=== PATIENT | male | born 1955 | race Caucasian/White ===

== ENCOUNTER 2019-08-20 08:14 | Emergency (ER) | payer BC, SELFPAY ==
[2019-08-20 08:15] VITALS: BP 159/91; PULSE 107; RESP 17; TEMP 36.4; O2SAT 100; BMI 28.7
--- NOTE | 2019-08-20 09:23 | ED.DCSUM_ITS ---
- ER Visit Summary Date of Service: 08/20/19 Chief Complaint: Right leg injury History of Present Illness: The patient is a 63 M who states that last night he was moving wood from a wood pile thinks he may have punctured his right leg. Has not stopped bleeding and is been problematic for him. He has placed a pressure bandage on it. Unknown last tetanus. Physical Examination: Afebrile vital signs stable On the mid right anterior lateral leg is 0.5 cm superficial laceration that has venous bleeding. Above and below this abrasion is a spider vein. Emergency Department Course and Treatment: Wound area washed with Shur-Clens lidocaine with epinephrine was instilled into the area. A single 4-0 pursestring suture was placed. This was then dressed with Surgicel and a dressing. His tetanus was updated. Suture will need to be removed in about 1 week. Impression: 1. Skin laceration 0.5 cm with a pair 2. Tetanus update This note was generated with [employer] dictation software. It may contain incorrect words, spelling, and punctuation that were not noted in review of the chart prior to signing ED Disposition - Plan for ED Patient: Disposition: Home or Assisted Living Instructions: PUNCTURE WOUND, General Referrals: Chino Child MD [Primary Care Provider] - 10 Day for suture removal
[2019-08-20] MEDS: Diphth,Pertuss(Acell),Tet Vac 0.5 ML Vial IM (09:31)
[2019-08-20 09:38] VITALS: BP 150/87; PULSE 100; RESP 16; O2SAT 100
== END 2019-08-20 09:39 | disposition home or self-care (01) ==
PROVIDERS: Emergency Provider Emergency Medicine; Family Provider Family Medicine; PCP Family Medicine
DX: S81.811A Laceration without foreign body, right lower leg, initial encounter (principal); X58.XXXA Exposure to other specified factors, initial encounter; Y93.9 Activity, unspecified; Y92.9 Unspecified place or not applicable; Z23 Encounter for immunization
CPT/HCPCS: 12001; 90471; 90715; 99282

== ENCOUNTER 2021-08-26 10:38 | Emergency (ER) | payer BC, SELFPAY ==
[2021-08-26 10:38] VITALS: BP 177/82; PULSE 109; RESP 24; TEMP 38.2; O2SAT 96; BMI 26.6
[2021-08-26 10:44] VITALS: BP 177/82; PULSE 109; RESP 24; TEMP 38.2; O2SAT 95; O2SAT 96
[2021-08-26 11:41] VITALS: BP 158/81; PULSE 100; RESP 25; TEMP 38.2; O2SAT 95
--- NOTE | 2021-08-26 11:52 | ED.VIS.DYS ---
HPI History of Present Illness Chief Complaint: Shortness of Breath Informant: patient Onset/Context/Timing Onset: Weeks (1) Context: gradual Timing: Continuous Quality: Positive for Dyspnea on exertion Worsened by: Exertion Relieved by: Albuterol Associated Symptoms cough, fever and yellow sputum; Negative for rhinorrhea, ear pain, sore throat or chills Chest Pain: Positive for None Narrative Narrative: Patient presents with shortness of breath that has been getting worse over the last week. Patient states it is gradually getting worse. Patient states his breathing is worse with any exertion. Patient states the albuterol seems to help with his breathing. Patient is to a cough with some yellow sputum. Patient admits to a fever of 102 at home. Patient denies any sore throat, rhinorrhea, or ear pain. Patient denies any chest pain. Patient states he tested positive for COVID-19 last week. PFSH PFSH Medical History no medical history no medical history Home Medications albuterol 90 mcg INHALATION Q4H PRN 08/26/21 [History Last Taken Unknown] benzonatate 100 mg PO TID PRN 08/26/21 [History Last Taken Unknown] Allergy/AdvReac Type Severity Reaction Status Date / Time No Known Allergies Allergy Verified 08/26/21 10:41 Surgical History no surgical history no surgical history Social History Smoking Status: Never smoker ROS ROS ED Constitutional Constitutional ED: Reports fever(s); Denies chills Eyes Eyes: Denies blurry vision or change in vision ENT ENT ED: Denies rhinorrhea or sore throat Cardiovascular Cardiovascular: Denies chest pain or palpitations Respiratory/Chest Respiratory/Chest: Reports cough and dyspnea Gastrointestinal Gastrointestinal: Denies nausea or vomiting Genitourinary Genitourinary ED: Reports dysuria; Denies hematuria Musculoskeletal Musculoskeletal: Denies back pain or neck pain Integumentary Denies abscess or rash Neurologic Neurologic: Denies headache(s) or weakness Allergic/Immunologic Allergic/Immunologic ED: Denies mouth swelling or urticaria EXAM Physical Exam Const Vital Signs: 08/26/21 10:38 08/26/21 10:44 08/26/21 11:41 Temperature 100.8 F H 100.8 F H 100.8 F H Temperature Source Oral Oral Oral Pulse Rate 109 H 109 H 100 Respiratory Rate 24 H 24 H 25 H Respiratory Effort Short of Breath Respiratory Pattern Tachypnea Blood Pressure 177/82 H 177/82 H 158/81 H Blood Pressure Mean 113 113 106 Pulse Ox 96 96 95 Oxygen Delivery Method Room Air Room Air Room Air 08/26/21 12:38 08/26/21 13:00 08/26/21 14:19 Temperature 99.1 F 25 F L Temperature Source Oral Pulse Rate 99 98 Respiratory Rate 29 H 24 H 95 H Respiratory Effort Respiratory Pattern Blood Pressure 172/85 H 140/81 H 148/85 H Blood Pressure Mean 114 100 Pulse Ox 94 97 98 Oxygen Delivery Method Room Air Room Air Positive well nourished and well developed General Appearance ED: well developed HEENT Reports moist mucous membranes Neck supple and no JVD Resp normal respiratory effort Auscultation: rales bilateral Cardio regular rate, regular rhythm and no murmurs GI normal to inspection, nondistended, normoactive bowel sounds and non-tender Palpation: soft Extremity normal to inspection General Extremety ED: Negative for edema or tenderness General Extremity: Negative for edema Neuro oriented x3, CN's II-XII intact bilaterally and no sensory deficits noted Sensorium / Orientation: alert Motor Exam: strength 5/5 throughout Psych mental status grossly normal Skin no rashes or lesions noted MDM MDM MDM Narrative Medical decision making narrative: Patient was given 6 puffs of an albuterol inhaler. Patient was given Tylenol. CBC was within normal limits. Comprehensive metabolic profile was essentially within normal limits. Lactate was normal. Portable chest x-ray was obtained. There is 1 view. On my interpretation, there are bilateral lower lobe infiltrates consistent with COVID-19 pneumonia. Bony thorax is normal. There is no cardiomegaly. Radiologist also interpreted the x-ray and agrees. Patient was advised of his findings. Patient was given a referral for outpatient monoclonal antibody therapy. Patient was instructed to continue using his inhaler as needed. Patient was instructed to follow-up with his primary care physician in 3 to 5 days. Patient was instructed return if worse in any way. Patient and family understood and were agreeable with the plan. All questions were answered. Lab Data Attestation: I reviewed the patient's lab results. Labs: Laboratory Results - last 24 hr 08/26/21 08/26/21 08/26/21 10:45 10:45 12:14 WBC 8.3 RBC 4.46 L Hgb 12.6 L Hct 38.1 L MCV 85.4 MCH 28.3 MCHC 33.1 RDW Std Deviation 46.7 H RDW Coeff of Arely 14.8 H Plt Count 326 MPV 9.2 Immature Gran % (Auto) 0.800 Neut % (Auto) 80.0 H Lymph % (Auto) 9.2 L Rusk % (Auto) 9.8 Eos % (Auto) 0.0 Baso % (Auto) 0.2 Absolute Neuts (auto) 6.6 Absolute Lymphs (auto) 0.76 L Nucleated RBC % 0 Sodium 134 L Potassium 3.9 Chloride 99 Carbon Dioxide 28.0 Anion Gap 7 BUN 15 Creatinine 1.03 Estim Creat Clear Calc 74.81 Est GFR (MDRD) Af Amer 93 Est GFR (MDRD) Non-Af 77 BUN/Creatinine Ratio 14.6 Glucose 142 H Lactic Acid 1.8 Calcium 8.5 Total Bilirubin 0.60 AST 71 H ALT 100 H Alkaline Phosphatase 53 Total Protein 7.0 Albumin 2.5 L Globulin 4.5 H Albumin/Globulin Ratio 0.6 L Radiography Chest X-Ray - ED: 1 View, Read by ED Physician, Read by Radiologist, Right Infiltrate and Left Infiltrate Diagnostic Testing: Radiology Impression Chest X-Ray 08/26/21 12:02 IMPRESSION: Multilobar pulmonary infiltrates with features commonly reported with COVID pneumonia. Electronically Signed: Andreas Ibqal MD ([place]) at 12:15 EDT , Service support , Discharge Plan Triage Chief Complaint: Shortness of Breath ED Provider: Chino Guevara Dx/Rx/DC Orders Clinical Impression: Pneumonia due to COVID-19 virus Instructions: Coronavirus Disease 2019 (COVID-19): Caring for Yourself or Others Prescriptions: No Action benzonatate 100 mg Capsule 100 mg PO TID PRN (Reason: Cough) RF: 0 albuterol 90 mcg/actuation Aerosol 90 mcg INHALATION Q4H PRN RF: 0 Other Ambulatory Orders: COVID Outpatient Monoclonal Antibody Referral (Routine) Timeframe: 1 Day Facility: [facility] - Location: [facility] Ordered By: Dr. Chino Guevara Primary Care Provider: Chino Child Referrals: Chino Child MD [Primary Care Provider] - 3-5 Days Disposition Disposition: Home, Self Care Discharge Date/Time: 08/26/21 14:43
[2021-08-26] MEDS: Acetaminophen 500 MG Tablet 1000 MG PO (11:57)
--- NOTE | 2021-08-26 12:02 | RAD_ITS ---
STUDY: X-RAY CHEST REASON FOR EXAM: Male, 65 years old. cough TECHNIQUE: AP COMPARISON: None. FINDINGS: EKG leads project over the chest. Lungs are underexpanded. Peripheral dominant multilobar groundglass and reticular opacities in the left more than right lung. There is no demonstrated pleural abnormality. Normal size heart. Normal mediastinum and juwan. Normal visualized pulmonary arteries. There is atherosclerotic calcification of the aortic arch with tortuosity. No acute bony process. There is no demonstrated abnormality of the visualized soft tissue structures of the upper abdomen. RAD/Chest 1 View (Portable) IMPRESSION: Multilobar pulmonary infiltrates with features commonly reported with COVID pneumonia. Electronically Signed: Andreas Iqbal MD ([place]oks) at 12:15 EDT , Service support ,
[2021-08-26 12:12] LABS: ALB/GLOB Ratio 0.6 RATIO (0.9-2.4); AST(SGOT) 71 U/L (15-37); Alanine Aminotransfer ALT/SGPT 100 U/L (16-61); Albumin, Serum 2.5 g/dL (3.2-5.0); Alkaline Phosphatase 53 U/L (45-117); Anion Gap 7 (5-15); BUN 15 mg/dL (7-18); BUN/Creat Ratio 14.6 RATIO (10-20); Calcium,Total 8.5 mg/dL (8.5-10.1); Chloride 99 mmol/L (98-107); Creatinine, Serum 1.03 mg/dL (0.70-1.30); EST Glomerular Filtration Rate 77 mL/min (>60); Est Glom Filt Rate - Afr Amer 93 mL/min (>60); Estimated Creatinine Clearance 74.81 ml/min; Globulin 4.5 g/dL (2.2-4.2); Glucose 142 mg/dL (74-106); Lactic Acid 1.8 mmol/L (0.4-1.9); Potassium 3.9 mmol/L (3.5-5.1); Sodium Level 134 mmol/L (136-145)
[2021-08-26 12:20] LABS: Absolute Lymphocyte Count 0.76 X10^3/uL (0.83-4.51); Absolute Neutrophil Count 6.6 X10^3/uL (2.0-7.7); Basophil# 0.02 X10^3/uL; Basophil% 0.2 % (0-1); Hematocrit 38.1 % (40-54); Hemoglobin 12.6 g/dL (13.0-16.5); Lymphocyte # 0.76 X10^3/ul (0.83-4.51); Lymphocyte % 9.2 % (19-41); Mean Corp Hgb Conc 33.1 g/dL (32-36); Mean Corpuscular Hgb 28.3 pg (27.0-32.0); Mean Corpuscular Volume 85.4 fL (80-94); Mean Platelet Vol. 9.2 fl (6.2-12.0); Monocyte# 0.81 X10^3/uL; Monocyte% 9.8 % (0-10); NRBC Flagged by Analyzer 0 % (0-5); Neutrophil # 6.62 X10^3/uL (2.7-7.7); Platelet Count 326 K/mm3 (150-450); RBC Distribution Width CV 14.8 % (11.6-14.6); RBC Distribution Width SD 46.7 fl (35.1-43.9); Red Blood Count 4.46 M/mm3 (4.6-6.2); White Blood Count 8.3 K/mm3 (4.4-11.0)
[2021-08-26 12:38] VITALS: BP 172/85; PULSE 99; RESP 29; O2SAT 94
[2021-08-26 13:00] VITALS: BP 140/81; PULSE 98; RESP 24; TEMP 37.3; O2SAT 97
[2021-08-26 14:19] VITALS: BP 148/85; RESP 95; TEMP -3.8; TEMP 25; O2SAT 98
== END 2021-08-26 14:43 | disposition home or self-care (01) ==
PROVIDERS: Emergency Provider Emergency Medicine; PCP Family Medicine
DX: U07.1 COVID-19 (principal); J12.82 Pneumonia due to coronavirus disease 2019
CPT/HCPCS: 71045; 80053; 83605; 85025; 87040; 87426; 99285; A4216

== ENCOUNTER 2022-07-06 04:19 | Emergency (ER) | payer BC, SELFPAY ==
[2022-07-06 04:19] VITALS: BP 119/115; PULSE 95; RESP 16; TEMP 36.6; O2SAT 97; BMI 27.7
--- NOTE | 2022-07-06 04:22 | EDS_ITS ---
HPI History of Present Illness Chief Complaint: Eye Problem Informant: patient Onset/Context/Timing Location: Right Eye Narrative Narrative: Patient started to get some irritation of his right eye yesterday morning. He did put in his contact. He he is not sure if it fell out. But he cannot find it in the eye. The eye is gotten more red irritated and is having weeping with matting. Its not really painful. He states the vision is cloudy but gets better as he blinks. He has a history of having infections like this although normally they have been in his left eye by chance. This is similar but in his right eye. He does wear extended wear soft contacts. He is not having fevers chills. No pain with eye motion. No headache. No nausea vomiting. PFSH PFSH Home Medications albuterol 90 mcg/actuation aerosol inhaler 90 mcg inhalation Q4H PRN 08/26/21 [History Last Taken Unknown] benzonatate 100 mg capsule 100 mg PO TID PRN Cough 08/26/21 [History Last Taken Unknown] tobramycin 0.3 % eye drops 2 drp RIGHT EYE Q2H #5 mL 07/06/22 [Rx Last Taken Unknown] Allergy/AdvReac Type Severity Reaction Status Date / Time No Known Allergies Allergy Verified 07/06/22 04:22 Social History Smoking Status: Never smoker ROS ROS ED Constitutional Constitutional ED: Denies chills or fever(s) Eyes Eyes: Reports blurry vision and other Details: I do not have visual acuity yet but this is ordered. I expect this to be reduced because of the infection, discharge, and lack of corrective vision. ENT ENT ED: Denies ear pain, rhinorrhea or sore throat Gastrointestinal Gastrointestinal: Denies nausea or vomiting Musculoskeletal Musculoskeletal: Denies neck pain Integumentary Reports other Details: No vesicles or facial rash, burning or discomfort. ; Denies rash Neurologic Neurologic: Denies headache(s) Hematologic/Lymphatic Hematologic/Lymphatic: Denies lymphadenopathy EXAM Physical Exam Const Vital Signs: 07/06/22 04:19 Temperature 97.9 F Temperature Source Temporal Pulse Rate 95 Respiratory Rate 16 Blood Pressure 119/115 H Blood Pressure Mean 116 Pulse Ox 97 Oxygen Delivery Method Room Air Positive well nourished and well developed General Appearance ED: well developed and NAD HEENT HEENT Narrative: There is no facial rash. Jose sign is negative. Eyes Eyes Narrative: Left eye looks normal. Right eye has obvious chemosis and inflammation. There is some purulent type discharge. Edges of his lids are somewhat inflamed. But there is no proptosis and no pain with range of motion. With direct funduscopic examination I do not see any contacts but there is a lot of discharge. Slit-lamp exam was done. Again I do not see contacts. I had him go through full range of motion and look under the lids and I do not see a contact including in the upper medial quadrant. Fluorescein was done as I was expecting to see an ulcer. However I do not see any area that is ulcerated in the cornea. The cornea actually looks quite clear other than slight discharge over it. This discharge is easy to move with his eyelid and see the area of the cornea. Maya sign is negative. No dendritic pattern is seen. Neck no lymphadenopathy Neck Narrative: No preauricular area nodes Resp normal respiratory effort Skin no wounds Lesions: no lesions Rashes: no rashes MDM MDM MDM Narrative Medical decision making narrative: Patient presents which what does look like a true bacterial conjunctivitis. My concern is that he is a contact lens wearer. These will oftentimes ulcerate although I do not see that at this time. I would like to use a bit of a fortified antibiotic such as tobramycin. We will initially start this at increased dose for 24 hours and then reduce this. 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 Brandt, first thing Thursday morning to get rechecked. If he develops pain, significant visual loss, swelling of the eyes, headache, nausea or vomiting he needs to return. Discharge Plan Triage Chief Complaint: Eye Problem ED Provider: Jett Lunsford Dx/Rx/DC Orders Clinical Impression: Bacterial conjunctivitis of right eye Instructions: ED Conjunctivitis, Bacterial Prescriptions: New tobramycin 0.3 % drops 2 drp RIGHT EYE Q2H Qty: 5 0RF Rx Instructions: 1-2 drops in right eye every 2 hours for 24 hours then reduce to every 4 hours frequency No Action benzonatate 100 mg Capsule 100 mg PO TID PRN (Reason: Cough) albuterol 90 mcg/actuation Aerosol 90 mcg INHALATION Q4H PRN Primary Care Provider: Chino Child Referrals: Philip Valdes MD [Med Staff - Active Staff] - 1 Day (Follow-up with Dr. Valdes or your water/wastewater project engineer, Dr. Brandt on Thursday) Chino Child MD [Primary Care Provider] - Disposition Disposition: Home, Self Care
[2022-07-06] MEDS: Tobramycin Sulf 0.3% 5ML OPTH.BTL 2 DRP RIGHT EYE (05:05)
[2022-07-06] MEDS: Fluorescein 1 MG STRIP 1 STRIP OPHTHALMIC (05:05)
== END 2022-07-06 05:09 | disposition home or self-care (01) ==
PROVIDERS: Emergency Provider Emergency Medicine; PCP Family Medicine; Visit Provider Emergency Medicine
DX: H10.9 Unspecified conjunctivitis (principal); Z97.3 Presence of spectacles and contact lenses
CPT/HCPCS: 99283

== ENCOUNTER → 2022-07-07 | Outpatient (CLI) | payer BC, SELFPAY | END | disposition home or self-care (01) | PROVIDERS: PCP Family Medicine; Visit Provider Ophthalmology | DX: H16.009 Unspecified corneal ulcer, unspecified eye (principal) | CPT/HCPCS: 87070; 87205 ==

== ENCOUNTER → 2023-03-04 | Outpatient (CLI) | payer OTHER, SELFPAY ==
[2023-03-04 16:32] LABS: ALB/GLOB Ratio 1.2 RATIO (0.9-2.4); AST(SGOT) 15 U/L (15-37); Alanine Aminotransfer ALT/SGPT 26 U/L (16-61); Albumin, Serum 3.7 g/dL (3.2-5.0); Alkaline Phosphatase 80 U/L (45-117); Anion Gap 6 (5-15); BUN 16 mg/dL (7-18); BUN/Creat Ratio 12.8 RATIO (10-20); Calcium,Total 8.9 mg/dL (8.5-10.1); Chloride 101 mmol/L (98-107); Cholesterol 251 mg/dL (200); Creatinine, Serum 1.25 mg/dL (0.70-1.30); EST Glomerular Filtration Rate 61 mL/min (>60); Est Glom Filt Rate - Afr Amer 74 mL/min (>60); Globulin 3.1 g/dL (2.2-4.2); Glucose 476 mg/dL (74-106); High Density Lipoprotein 45 mg/dL; PSA,Total - Annual Screen 1.24 ng/mL (0.00-4.00); Potassium 4.1 mmol/L (3.5-5.1); Protein, Total 6.8 g/dL (6.4-8.2); Sodium Level 132 mmol/L (136-145); Triglycerides 146 mg/dL; Very Low Density Lipoprotein 29 mg/dL (5-40)
[2023-03-05 14:40] LABS: Thyroid Stim Hormone (TSH) 2.28 uIU/mL (0.358-3.74)
[2023-03-05 15:17] LABS: Hemoglobin A1c 13.5 % (3.8-5.6)
[2023-03-07 14:02] LABS: C-Peptide 2.7 ng/mL (1.1-4.4)
== END | disposition home or self-care (01) ==
LOC: MTLAB 11:42
PROVIDERS: PCP Family Medicine; Referring Provider Family Medicine; Visit Provider Family Medicine
DX: E78.00 Pure hypercholesterolemia, unspecified (principal); Z12.5 Encounter for screening for malignant neoplasm of prostate
CPT/HCPCS: 36415; 80053; 80061; 83036; 84153; 84443; 84681; G0103

== ENCOUNTER → 2023-06-03 | Outpatient (CLI) | payer OTHER, SELFPAY ==
[2023-06-03 10:21] LABS: AST(SGOT) 20 U/L (15-37); Alanine Aminotransfer ALT/SGPT 19 U/L (16-61); Albumin, Serum 3.4 g/dL (3.2-5.0); Alkaline Phosphatase 54 U/L (45-117); Anion Gap 6 (5-15); BUN 19 mg/dL (7-18); BUN/Creat Ratio 14.8 RATIO (10-20); Chloride 108 mmol/L (98-107); Cholesterol 222 mg/dL (200); Creatinine, Serum 1.28 mg/dL (0.70-1.30); EST Glomerular Filtration Rate 60 mL/min (>60); Est Glom Filt Rate - Afr Amer 72 mL/min (>60); Globulin 3.3 g/dL (2.2-4.2); Glucose 105 mg/dL (74-106); High Density Lipoprotein 45 mg/dL; Protein, Total 6.7 g/dL (6.4-8.2); Sodium Level 141 mmol/L (136-145); Triglycerides 97 mg/dL; Very Low Density Lipoprotein 19 mg/dL (5-40)
[2023-06-03 10:27] LABS: Hemoglobin A1c 6.4 % (3.8-5.6)
[2023-06-03 10:42] LABS: Microalbumin,Random Urine 32.4 mg/L (NO RANGE EST.); Microalbumin:Creatinine Ratio 22.2 mg/g CRE (<30 mg/g CRE)
== END | disposition home or self-care (01) ==
LOC: MTLAB 07:57
PROVIDERS: PCP Family Medicine; Referring Provider Family Medicine; Visit Provider Family Medicine
DX: E11.9 Type 2 diabetes mellitus without complications (principal)
CPT/HCPCS: 36415; 80053; 80061; 82043; 82570; 83036

== ENCOUNTER → 2023-12-08 | Outpatient (CLI) | payer OTHER, SELFPAY ==
--- OUTSIDE RECORDS SUMMARY | 2023-12-08 07:20 | XMS RPT_ITS | CCD ---
Author Name Unknown Address [address] [place] [address] Organization [facility] Care Team Providers Care Rn Hemodialysis Charge Name Role Phone Galo Valdes Unavailable GALO VALDES Referring Unavailable MARTÍNEZ RIVERA Attending Unavailable Medications Completed/Discontinued Medications Medication Drug Class(es) Dates Sig (Normalized) Sig (Original) prednisoLONE acetate 10 mg/ml ophthalmic suspension (2 sources) Corticosteroid Start: 08-20-2022 prednisoLONE acetate (PRED FORTE, ECONOPRED PLUS) 1 % ophthalmic suspension Use 1 Drop in the right eye twice daily. 5 mL 0 08/20/2022 Active Problems Problem Classification Problem Date Documented Da te Episodic/Chronic Other eye disorders (1 source) Scar of cornea of right eye; Translations: [Unspecified corneal scar and opacity] Episodic Results Test Name Value Interpretation Reference Range Facil ity Encounters Encounter Date Encounter Type Care Provider Facility Start: 09-03-2022 End: 09-03-2022 Patient encounter procedure Martínez Rivera MD Work Phone: Ophthalmology Plan of Treatment Date Care Activity Detail Author Start: 07-24-2022 Influenza vaccination INFLUENZA (#1) [facility] Start: 11-23-2021 ADVANCE DIRECTIVE DISCUSSION ADVANCE DIRECTIVE DISCUSSION [facility] Start: 11-23-2021 DEPRESSION ASSESSMENT DEPRESSION ASS ESSMENT [facility] Start: 2021 PNEUMOCOCCAL: 65+ (1 - PCV) PNEUMOCOCCAL: 65+ (1 - PCV) [facility] Start: 2011 PROSTATE CANCER SCRE ENING DISCUSSION PROSTATE CANCER SCREENING DISCUSSION [facility] Start: 2006 SHINGRIX VACCINE (1 of 2) SHINGRIX V ACCINE (1 of 2) [facility] Start: 2001 COLOGUARD (FIT-DNA) COLOGUARD (FIT-D NA) [facility] Start: 2001 Colonoscopy COLONOSCOPY [facility] Start: 2001 COLORECTAL CANCER SCREENING COLORECTAL CANCER SCREENING [facility] Start: [address] COLONOGRAPHY [facility] Start: 2001 DIABETES SCREEN DIABETES SCREEN [facility] Start: 2001 FECAL OCCULT BLOOD FECAL OCCULT BLOO D [facility] Start: 2001 SIGMOIDOSCOPY SIGMOIDOSCOPY [facility] Start: 1991 LIPID SCREEN LIPID SCREEN [facility] Start: 1975 Urine microalbumin profile DTAP,TDAP ,TD (1 - Tdap) [facility] Start: 1974 HEPATITIS C SCREENING HEPATITIS C SC REENING [facility] Start: 1974 HIV SCREENING HIV SCREENING [facility] Start: 04-28-1957 COVID-19 VACCINE (#1) COVID-19 VACCI NE (#1) [facility] Payers Date Payer Category Payer Unknown [employer] PPO [id number] 2019-Present [phone] [id number] [place] [address] PPO [id number] 2019 Unknown [id number] Social History Date Type Detail Facility Start: 08-20-2022 Tobacco smoking stat [facility] Never smoked tobacco [facility] Start: 08-20-2022 Tobacco use and exposure Smoke less tobacco non-user [facility] Start: 1955 Sex Assigned At Not on file [facility] Start: 08-10-2022 End: 08-20-2022 Exposure to SARS-CoV-2 (event) Not sure [facility] History of Present illness Narrative 09-03-2022 Martínez Rivera MD - 09/03/2022 4:16 PM EDT Note Date & Type Note Facility 09-03-2022 History of Presen t illness Narrative Assessment and Plan 1. Corneal scar, right eye -history of culture-negative contact lens-related keratitis right eye that responded well to fortified antibiotics -well healed with Wessely ring on examination today - moraxella? -denies history of cold sores or exposure to plant matter (patient works on computers) Plan: -decrease prednisolone once a day right eye -follow-up 2 weeks / sooner as needed -Dr. Valdes for routine I have confirmed and edited as necessary the relevant ophthalmic history, ROS, and the neuro exam findings as obtained by others. I have seen and examined Joby Baker. I have discussed the case and the management of this patient's care with the Resident/Fellow, if applicable. I also have reviewed and agree with the assessment and plan as stated above and agree with all of its relevant components. Martínez Rivera MD documented in this encounter [facility] Note 08-21-2022 Telephone Encounter - Brigitte Morris RN - 08/21/2022 4:38 PM EDTTelephone Encounter - Brigitte Morris RN - 08/20/2022 12:32 PM EDT Note Date & Type Note Facility 08-21-2022 Miscellaneous Notes Formattin g of this note might be different from the original. Called Pharmacy to give dispense amount of 10 ml for the Prednisolone. Brigitte Morris RN August 21, 2022 4:39 PM Yes, it is per verbal order from Dr. Rivera. Brigitte Morris RN August 20, 2022 12:[address] Scott, is the 10mL okay to put through instead of the 5mL for Prednisolone? Please advise thank you Carla Durant August 20, 2022 10:53 AM [facility] pharmacy wanted to know if they could give the 10 ml of prednisolone because the 5 ml is on backorder. Please call pharmacy to update and/or fax new order if necessary. ph. [phone], fax [phone] documented in this encounter [facility] Progress note 08-20-2022 Note Date & Type Note Facility 08-20-2022 Note HNO ID: [id number] Author: Martínez Rivera MD Service: ? Author Type: Physician Type: Progress Notes Filed: 08/20/2022 9:54 AM Note Text: Assessment and Plan 1. Corneal scar, right eye -history of culture-negative contact lens-related keratitis right eye that responded well to fortified antibiotics -well healed with Wessely ring on examination today - moraxella? -denies history of cold sores or exposure to plant matter (patient works on computers) Plan: -prednisolone twice a day right eye -follow-up 2 weeks / sooner as needed -Dr. Valdes for routine I have confirmed and edited as necessary the relevant ophthalmic history, ROS, and the neuro exam findings as obtained by others. I have seen and examined Joby Baker. I have discussed the case and the management of this patient's care with the Resident/Fellow, if applicable. I also have reviewed and agree with the assessment and plan as stated above and agree with all of its relevant components. Martínez Rivera MD August 20, 2022 9:52 AM [facility] Evaluation note Note Date & Type Note Facility documented in this encounter [facility] Summary Purpose Family History No Family History Records Found Advance Directives No Advanced Directives Records Found Additional Source Comments Source Comments (unrecognize d section and content) In the event this informatio n is protected by the Federal Confidentiality of Alcohol and Drug Abuse Patient Records regulations: The Federal rules restrict any use of the information to criminally investigate or prosecute any alcohol or drug abuse patient.[facility] the event this information is protected by the Federal Confidentiality of Alcohol and Drug Abuse Patient Records regulations: The Federal rules restrict any use of the information to criminally investigate or prosecute any alcohol or drug abuse patient.[facility] Reason for Visit (unrecogniz ed section and content) Reason Comments Corneal Scar Right eye Care Teams (unrecognized sec tion and content) Rn Hemodialysis Charge Relationship Specialty Start Date End Date Galo Valdes [address] [place] [address] Referring Ophthalmology 08/14/22 (unrecognized sect ion and content) No Status Records Found INFORMATION SOURCE (unrecogn ized section and content) FOR RECORDS PERTAINING TO PATIENTS WHO ARE OR HAVE BEEN ENROLLED IN A CHEMICAL DEPENDENCY/SUBSTANCEABUSE PROGRAM, SOME INFORMATION MAY BE OMITTED. This clinical summary was aggregated from multiple sources. Caution should be exercised in using it in the provision of clinical care. This summary normalizes information from multiple sources, and as a consequence, information in this document may materially change the coding, format and clinical context of patient data. In addition, data may be omitted in some cases. CLINICAL DECISIONS SHOULD BE BASED ON THE PRIMARY CLINICAL RECORDS. [employer] provides no warranty or guarantee of the accuracy or completeness of information in this document.
[2023-12-08 10:17] LABS: Microalbumin,Random Urine 26.2 mg/L (NO RANGE EST.); Microalbumin:Creatinine Ratio 19.8 mg/g CRE (<30 mg/g CRE)
[2023-12-08 11:02] LABS: ALB/GLOB Ratio 1.2 RATIO (0.9-2.4); AST(SGOT) 12 U/L (15-37); Alanine Aminotransfer ALT/SGPT 25 U/L (16-61); Albumin, Serum 3.8 g/dL (3.2-5.0); Alkaline Phosphatase 45 U/L (45-117); Anion Gap 8 (5-15); BUN 15 mg/dL (7-18); BUN/Creat Ratio 11.5 RATIO (10-20); Calcium,Total 9.2 mg/dL (8.5-10.1); Chloride 104 mmol/L (98-107); Cholesterol 261 mg/dL (200); EST Glomerular Filtration Rate 59 mL/min (>60); Est Glom Filt Rate - Afr Amer 71 mL/min (>60); Globulin 3.1 g/dL (2.2-4.2); Glucose 131 mg/dL (74-106); High Density Lipoprotein 46 mg/dL; Potassium 3.7 mmol/L (3.5-5.1); Protein, Total 6.9 g/dL (6.4-8.2); Sodium Level 139 mmol/L (136-145); Triglycerides 126 mg/dL; Very Low Density Lipoprotein 25 mg/dL (5-40)
[2023-12-08 11:18] LABS: Hemoglobin A1c 6.2 % (3.8-5.6)
== END | disposition home or self-care (01) ==
LOC: MTLAB 07:07
PROVIDERS: PCP Family Medicine; Referring Provider Family Medicine; Visit Provider Family Medicine
DX: E11.9 Type 2 diabetes mellitus without complications (principal); Z12.5 Encounter for screening for malignant neoplasm of prostate; E78.00 Pure hypercholesterolemia, unspecified
CPT/HCPCS: 36415; 80053; 80061; 82043; 82570; 83036

== ENCOUNTER 2024-02-11 05:52 | Day surgery (SDC) | payer OTHER, SELFPAY ==
--- NOTE | 2024-02-04 06:53 | EKG12_ITS ---
Test Reason : PRE-OP Blood Pressure : / mmHG Vent. Rate : 080 BPM Atrial Rate : 080 BPM P-R Int : 166 ms QRS Dur : 078 ms QT Int : 380 ms P-R-T Axes : 068 024 039 degrees QTc Int : 438 ms Normal sinus rhythm Normal ECG Confirmed by GURINDER MEMBRENO, MARY CARMEN ([id number]), video effects editor LIZYZ GARCIA ([id number]) on 02/05/2024 2:11:47 PM Referred By: Asim Pillai Confirmed By:MARY CARMEN FAIRCHILD MD
[2024-02-11] VITALS (8 sets, daily range): BP systolic 114–145; BP diastolic 61–85; PULSE 64–88; RESP 16–17; TEMP 36.3–37.1; O2SAT 95–100; BMI 26.9
--- NOTE | 2024-02-11 06:40 | HP.PCM_ITS ---
History and Physical Date of Admission: 02/11/24 Intake Vital Signs 07/06/2204:19 01/13/2408:20 Height 5 ft 10 in 5 ft 10 in Weight: 188 lb BMI 26.9 BP 160/90 H Blood Pressure Location Rt brachial Position Sitting Respiration 18 Intake Visit Reasons: Inguinal Swelling Chief Complaint: [facility] [employer] Required: No Is patient in pain?: Yes (left groin) Allergies No Known Allergies Allergy (Verified 01/13/24 08:22) Medications aspirin 81 mg tablet,delayed release 81 mg PO DAILY 01/13/24 [History Confirmed 01/13/24] metformin 500 mg tablet 500 mg PO DAILY 01/13/24 [History Confirmed 01/13/24] multivitamin (Daily Multi-Vitamin tablet) 1 tab PO DAILY 01/13/24 [History Confirmed 01/13/24] pitavastatin calcium 2 mg tablet 2 mg PO QPM 01/13/24 [History Confirmed 01/13/24] ramipril 2.5 mg capsule 2.5 mg PO DAILY 01/13/24 [History Confirmed 01/13/24] [facility] Medical History (Updated 01/13/24 @ 11:[address] Asim Pillai MD) Constipation Diabetes High cholesterol HTN (hypertension) Left groin pain Surgical History (Updated 01/13/24 @ 08:18 by Shea El) S/P vasectomy Family History (Updated 01/13/24 @ 08:19 by Shea El) Mother Diabetes Heart diseaseSister Diabetes Heart diseaseBrother Diabetes Heart disease CAD (coronary artery disease) Social History (Updated 01/13/24 @ 08:20 by Shea El) Smoking Status: Never smoker alcohol intake: current details: social HPI HPI HPI: Patient is here complaining of left groin bulging. He says it is worse when he has to go to the bathroom or having a lot of gas. He says has been going on for about a year. He denies nausea or vomiting. He denies any pain on the opposite side. ROS General General: No weight change, appetite, fatigue, colon cancer, breast cancer or weakness HEENT HEENT: No difficulty swallowing, eye injury, eye surgery, swollen glands or hoarseness Endo Endocrine: Yes diabetes mellitus; No thyroid disease, thyroid cancer, Hair loss, heat intolerance or cold intolerance Skin Skin: No rash or changing moles Breast Breast: No left breast lump, right breast lump, nipple discharge, breast pain, abnormal mammogram, abnormal US or breast enlargement Musc Musculoskeletal: No back problems, arthritis, rheumatoid arthritis, gout or joint pain Cardio Cardiovascular: Yes high blood pressure; No murmur, pacemaker, heart disease, atrial fibrillation, heart attack, heart stent, palpitations, shortness of breat with exertion or chest pain Psych Psychiatric: No depression, anxiety or hearing voices Resp Respiratory: No shortness of breath, No sleep apnea, No cough, No COPD, No ast hma, No emphysema and No wheezing Gastro Gastrointestinal: No abdominal pain, No nausea or vomiting, No diarrhea, Yes constipation, No blood in stool, No acid reflux, No hemorrhoids, No ulcers, No gallbladder problem and No black,tarry stools Clifford Hematologic: Yes blood thinners, No blood disorders, No bleeding, No anemia and No blood clots Neuro Neurologic: No system reviewed and no additional complaints, except as documented, No as per HPI, No abnormal gait, No abnormal hearing, No abnormal movements, No abnormal speech, No behavioral changes, No burning sensations, No confusion, No convulsions, No disequilibrium, No dizziness, No localized weakness, No frequent falls, No headache(s), No lack of coordination, No loss of vision, No memory loss, No numbness, No other visual disturbances, No radicular pain, No restless legs, No sensory deficit, No syncope, No tingling, No tremor(s), No weakness and No other Exam Const General: cooperative Orientation: alert and oriented x3 HENMS Head: normal to inspection Neck Neck: normal visual inspection and full ROM Chest Chest palpation & inspection: normal inspection of the chest Resp Effort & Inspection: normal respiratory effort Auscultation: clear to auscultation bilaterally Cardio Rate: regular rate Rhythm: regular rhythm GI Inspection: non-distended Palpation: soft, hernia indirect inguinal on the left and nontender Skin General: no rashes or lesions noted Neuro General: patient alert and patient oriented x3 Extrem General: full ROM Psych Appearance: grossly normal Mental Status: mental status grossly normal Assessment and Plan Assessment and Plan (1) Left inguinal hernia: Status: Acute Plan: The patient has a large but reducible left inguinal hernia that seems to contain colon. I discussed robotic assisted laparoscopic left inguinal hernia repair with mesh with him in great detail. I discussed the risks including but not limited to bleeding, infection, injury to other organs such as the bowel or bladder or blood supply the testicle. Patient understands the risks and is willing to proceed. I discussed repairing the opposite side if he has any herniation on that side and he would like to proceed if there is a hernia on the opposite side. Asim Pillai MD Pager: [facility] [address] [place] [address] [address] [place] [address] Office: I have examined the patient and the H&P has been reviewed. There are no clinical changes since date of exam.
[2024-02-11] MEDS: Lactated Ringers 1,000 ML 15 ML IV ×2 (06:42→09:25)
[2024-02-11] MEDS: Cefazolin 2 GM in 0.9% Normal Saline (100mL Bag) 100 ML IV (07:24)
[2024-02-11 08:03] LABS: Bedside Glucose 146 mg/dL (74-106)
[2024-02-11] MEDS: Bupivacaine Mpf 0.5% 30 ML VIAL (08:16)
--- NOTE | 2024-02-11 08:38 | PCM.OPRPT ---
Report of Operation Date of Procedure: 02/11/24 Pre-Operative Diagnosis: Left inguinal hernia Post-Operative Diagnosis: Same Surgery/Procedure Performed:: Robotic assisted laparoscopic left inguinal hernia repair with mesh Description of Surgical Findings:: Inflammation from the sigmoid to the peritoneum Type of Anesthesia: General/Regional Estimated Blood Loss (mL): 5 Description of Procedure: Patient was brought back to the operating room and general anesthesia was induced. The abdomen was prepped and draped in usual sterile fashion. Midline incision was made superior to the umbilicus and deepened to the fascia. The fascia was grasped and elevated and a Veress needle was placed into the abdomen and a drop test was performed. Next the abdomen was insufflated to 15 mmHg. The Veress needle was removed and a port was placed into the abdomen. Next the camera was placed into the abdomen and it was inspected and there were no injuries from entry. Patient was placed in steep Trendelenburg position and his inguinal regions were inspected. The patient had inguinal hernia on the left but nothing on the right. There was also some inflammation from the colon to the peritoneum. Next under direct visualization a right lateral 8 mm port was placed as well as a left lateral 8 mm port and the robot was docked. Using sharp dissection the adhesions from the colon were taken down. There is an area that might have been a diverticulum that was inflamed and stuck to the peritoneum. This area was sutured over using 3-0 silk suture to imbricate the area that was dissected free. There was no sign of colon injury. Next using electrocautery scissors the left lower quadrant peritoneum was incised. Dissection was carried inferiorly until the hernia sac was encountered. The hernia sac was slowly reduced into the abdomen. It was very long. Once it was fully reduced dissection was carried posteriorly. Next a ProGrip mesh was unfolded in the left groin and placed over the hernia defect. It covered the direct space as well. There was good coverage on all sides. Next the peritoneum was reapproximated using a running 3 OV lock suture. The mesh was completely covered by peritoneum at the end of the case. The robot was undocked and the ports were allowed to desufflate the abdomen. Next the ports were removed and the local anesthetic was injected into the incisions. The incisions were closed with interrupted 4-0 Monocryl sutures. Steri-Strips and bandages were applied. The scrotum was checked at the end the case and obtained both testicles. Patient was awoken and taken to PACU in stable condition and tolerated the procedure well. Grafts/Implants Used: ProGrip mesh in the left groin Admit VTE Documentation VTE Mechan Device Prophylaxis: SCD's
--- NOTE | 2024-02-11 08:57 | DCINST_ITS ---
Discharge Instructions Procedure Hernia Diet Discharge Diet: Light diet - advance as tolerated Activity Discharge Activity: May Not Drive (for 2-3 days or while taking narcotic pain meds.) and May Shower (with the bandage in place 1-2 days after surgery.) Lifting Restrictions: 20 pounds for 4 weeks. Additional Activity Instructions:: Climbing stairs is fine, walking is encouraged. Sitting in bed may be uncomfortable. Sitting up using your lateral muscles (sitting up sideways) is usually more comfortable. Do not drive, work heavy equipment of sign legal documents for 24 hours. If your hernia repair was an inguinal repair, you may have scrotal swelling, an ice pack and/or athletic support can provide more comfort. Pain medications may cause nausea, you should typically eat light foods as you take your pain medications. Pain medications may also cause constipation. If you have difficulty with this, discuss with your doctor. Resume aspirin tomorrow Alternate ibuprofen and Tylenol for pain, oxycodone for breakthrough pain. Dressing / Incision Call your doctor if your incision/area has: Continuous Slow Oozing, Sudden Increased Bleeding, Increased Pain/ Swelling, Increased Redness and Foul Smelling Discharge Call your doctor if you observe: Fever of 101 or Higher Suture Line Care: Avoid Pulling/Pushing and Avoid Pinching/Bending Remove Dressing in: 2 days (Remove clear bandages in 2 days, remove Steri-Strips in 7 to 10 days.) Follow Up Care Please Follow Up With: Asim Pillai MD When: Please call to schedule 2 week follow up appointment. [phone] Test Results: Test results from this visit will be discussed in further detail at your follow- up appointment, if applicable. Discharge Plan Admission Attending Provider: Asim Pillai Primary Care Provider: [place] Child Discharge Orders/Prescriptions Prescriptions: New oxycodone 5 mg Tablet 5 - 10 mg PO Q4H PRN PRN (Reason: Pain Score 4-10/10) 5 Days Qty: 10 0RF No Action metformin 500 mg tablet 500 mg PO DAILY ramipril 2.5 mg capsule 2.5 mg PO DAILY multivitamin [Daily Multi-Vitamin] Tablet 1 tab PO DAILY aspirin 81 mg tablet,delayed release (DR/EC) 81 mg PO DAILY pitavastatin calcium 2 mg tablet 2 mg PO QPM Referrals / Follow Up: [place] Child MD [Primary Care Provider] - Disposition Disposition (needs filled in before D/C Order can be placed): Home, Self Care
== END 2024-02-11 11:11 | disposition home or self-care (01) ==
LOC: SDC 05:53 → AC 05:53
PROVIDERS: PCP Family Medicine; Referring Provider Surgery; Visit Provider Surgery
PROC: 0YQ64ZZ Repair Left Inguinal Region, Percutaneous Endoscopic Approach (ICD-10-PCS; CPT 49650; principal; 2024-02-11 07:10)
DX: K40.90 Unilateral inguinal hernia, without obstruction or gangrene, not specified as recurrent (principal); E11.9 Type 2 diabetes mellitus without complications; E78.00 Pure hypercholesterolemia, unspecified; Z79.84 Long term (current) use of oral hypoglycemic drugs; I10 Essential (primary) hypertension; Z98.52 Vasectomy status
CPT/HCPCS: 49650; S2900; 00840; 82962; 93005; J7120; J2405

== ENCOUNTER → 2025-06-08 | Outpatient (CLI) | payer OTHER, SELFPAY ==
[2025-06-08 11:22] LABS: AST(SGOT) 13 U/L (<=37); Alanine Aminotransfer ALT/SGPT 16 U/L (<=46); Albumin, Serum 4.1 g/dL (3.4-4.8); Alkaline Phosphatase 54 U/L (40-129); Anion Gap 12 (5-15); BUN 17 mg/dL (4-19); BUN/Creat Ratio 13.5 RATIO (10-20); Calcium,Total 9.0 mg/dL (7.6-11.0); Carbon Dioxide 24.4 mmol/L (21.0-32.0); Chloride 101 mmol/L (98-108); Cholesterol 199 mg/dL (<=200); Globulin 2.4 g/dL (2.2-4.2); Glucose 306 mg/dL (70-99); Low Density Lipoprotein Calc. 137 mg/dL; Potassium 4.0 mmol/L (3.3-5.1); Triglycerides 87 mg/dL; Very Low Density Lipoprotein 17 mg/dL (5-40); cholesterol:hdl ratio screen 4.42
[2025-06-08 13:11] LABS: Creatinine, Urine (random) 159.00 mg/dL (39.00-259.00); Microalbumin,Random Urine 56.4 mg/L (<20 mg/L)
--- OUTSIDE RECORDS SUMMARY | 2025-06-08 18:06 | XMS RPT_ITS | CCD ---
Author Organization [facility] ion [facility] Care Team Providers Care Geology Technician Name Role Phone Philip Valdes Unavailable PHILIP VALDES Referring Unavailable MARTÍNEZ RIVERA Attending Unavailable Dr. Chino Child Primary Care Provider Dr. Chino Child Referring Provider Dr. Asim Pillai Attending Provider Dr. Asim Pillai Referring Provider Dr. Asim Pillai Other Provider ChildChino Referring Unavailable Child, Chino Primary Care Unavailable Chino Child Attending Unavailable Child, Chino Referring Unavailable Child, Chino Primary Care Unavailable Chino Child Attending Unavailable Child, Chino Referring Unavailable Child, Chino Primary Care Unavailable Asim Pillai Attending Unavailable Rg Cuello Referring Unavailable Larry Brower Attending Unavailable Mateusz, Chino Primary Care Unavailable Asim Pillai Referring Unavailable Mateusz, Chino Primary Care Unavailable Asim Pillai Consulting Unavailable Asim Pillai Attending Unavailable Mateusz, Chino Referring Unavailable Asim Pillai Attending Unavailable Child, Chino Primary Care Unavailable Asim Pillai Referring Unavailable Child, Chino Primary Care Unavailable Asim Pillai Attending Unavailable Child, Chino Referring Unavailable Child, Chino Primary Care Unavailable ChildChino Attending Unavailable Medications Current Medications Medication Drug Class(es) Dates Sig (Normalized) Sig (Original) aspirin 81 mg delayed release oral tablet (1 source) Platelet Aggregation Inhibitor, Nonsteroidal Anti-inflammatory Drug Start: 01-13-2024 take 81 mg by mouth once daily Aspirin Active 81 MG PO DAILY January 13, 2024 1:00am metFORMIN hydrochloride 500 mg oral tablet (1 source) Biguanide Start: 01-13-2024 take 500 mg by mouth once daily Metformin Active 500 MG PO DAILY January 13, 2024 1:00am Multivitamin (Daily Multi-Vitamin) tablet (1 source) Start: 01-13-2024 take 1 tablet by mouth once daily Multivitamin (Daily Multi-Vitamin) tablet Active 1 TABLET PO DAILY January 13, 2024 1:00am oxyCODONE hydrochloride 5 mg oral tablet (1 source) Opioid Agonist Start: 02-11-2024 take 5-10 mg by mouth every four hours as needed Oxycodone Active 5 - 10 MG PO EVERY 4 HOURS NEEDED 08 27February 11, 2024 Start: 02-11-2024 take 5-10 mg by mout h every four hours as needed Oxycodone Active 5 - 10 MG PO EVERY 4 HOURS NEEDED 08 27February 11, 2024 pitavastatin calcium 2 mg oral tablet (1 source) HMG-CoA Reductase Inhibitor Start: 01-13-2024 take 2 mg by mouth once daily in the evening Pitavastatin Calcium Active 2 MG PO EVERY EVENING January 13, 2024 1:00am ramipril 2.5 mg oral capsule (1 source) Angiotensin Converting Enzyme Inhibitor Start: 01-13-2024 take 2.5 mg by mouth once daily Ramipril Active 2.5 MG PO DAILY January 13, 2024 1:00am Completed/Discontinued Medications Medication Drug Class(es) Dates Sig (Normalized) Sig (Original) Albuterol (5 sources) beta2-Adrenergic Agonist Start: 08-26-2021 End: 01-13-2024 take 90 ug by inhalation every four hours as needed Albuterol Discontinued 90 MCG INHALATION EVERY 4 HOURS NEEDED August 26, 2021 12:00am January 13, 2024 9:23am Start: 08-26-2021 take 90 ug by inhala tion every four hours as needed Albuterol Active 90 MCG INHALATION EVERY 4 HOURS NEEDED August 25, 2021 11:00pm Start: 08-26-2021 take 90 ug by inhala tion every four hours as needed Albuterol Active 90 MCG INHALATION EVERY 4 HOURS NEEDED August 26, 2021 12:00am benzonatate 100 mg oral capsule (5 sources) Non-narcotic Antitussive Start: 08-26-2021 End: 01-13-2024 take 100 mg by mouth three times daily Benzonatate Discontinued 100 MG PO THREE TIMES A DAY August 26, 2021 12:00am January 13, 2024 9:23am prednisoLONE acetate 10 mg/ml ophthalmic suspension (2 sources) Corticosteroid Start: 08-20-2022 prednisoLONE acetate (PRED FORTE, ECONOPRED PLUS) 1 % ophthalmic suspension Use 1 Drop in the right eye twice daily. 5 mL 0 08/20/2022 Active Comment on above: Use 1 Drop in the ri ght eye twice daily. tobramycin 3 mg/ml ophthalmic solution (5 sources) Aminoglycoside Antibacterial Start: 07-06-2022 End: 01-13-2024 Tobramycin Discontinued 2 DRP RIGHT EYE Q2H 5 July 06, 2022 12:00am January 13, 2024 9:23am 1-2 drops in right eye every 2 hours for 24 hours then reduce to every 4 hours frequency Problems Problem Classification Problem Date Documented Da te Episodic/Chronic Abdominal hernia (3 sources) Left inguinal hernia ; Translations: [Unilateral inguinal hernia, without obstruction or gangrene, not specified as recurrent] Onset: 02-16-2024 01-13-2024 Episodic Abdominal pain (1 source) Left inguinal pain; Translations: [Left lower quadrant pain] 01-13-2024 Episodic Diabetes mellitus without complication (2 sources) Diabetes mellitus; Translations: [Type 2 diabetes mellitus without complications] Onset: 12-11-2023 02-01-2024 Chronic Disorders of lipid metabolism (2 sources) Hypercholesterolemi a; Translations: [Pure hypercholesterolemi a, unspecified] Onset: 03-11-2023 02-01-2024 Chronic Essential hypertension (1 source) Hypertensive disorder; Translations: [Essential (primary) hypertension] 02-01-2024 Chronic Inflammation; infection of eye (except that caused by tuberculosis or sexually transmitteddisease) (5 sources) Bacterial conjunctivitis; Translations: [Unspecified conjunctivitis] 07-14-2022 Episodic Other eye disorders (1 source) Scar of cornea of right eye; Translations: [Unspecified corneal scar and opacity] Episodic Other gastrointestinal disorders (1 source) Constipation; Translations: [Constipation, unspecified] 01-13-2024 Episodic Viral infection (5 sources) COVID-19; Translations: [Pneumonia due to COVID-19 virus] 09-03-2021 Episodic Results Test Name Value Interpretation Reference Range Facility Surgery Visit Reporton 02-23 Surgery Visit Report [facility] [address] [place], [place] [address] OFFICE VISIT Date of Service: 02/24/24 MR#: [id number] Acct: [id number] Name: TANGELA STORM HERMAN Rep #: [id number] : 1955 Provider: Dr. Asim tang MD Age/Sex: 68/M Location: [facility] Status: Signed Intake Vital Signs 02/11/24 06:43 Height 5 ft 10 in Intake Visit Reasons: HERNIA DOS 02/10 Chief Complaint: [facility] f/u Is patient in pain?: No Allergies No Known Allergies Allergy (Verified 02/24/24 09:25) Medications aspirin 81 mg tablet,delayed release 81 mg PO DAILY 01/13/24 [History Confirmed 02/11/24] metformin 500 mg tablet 500 mg PO DAILY 01/13/24 [History Confirmed 02/11/24] multivitamin (Daily Multi-Vitamin tablet) 1 tab PO DAILY 01/13/24 [History Confirmed 02/11/24] pitavastatin calcium 2 mg tablet 2 mg PO QPM 01/13/24 [History Confirmed 02/11/24] ramipril 2.5 mg capsule 2.5 mg PO DAILY 01/13/24 [History Confirmed 02/11/24] Subjective Details: Patient has no discomfort and is healing well Objective Details: Incisions healing well abdomen is soft and nontender Coding Level of Care Code Global Post Op Diagnoses S/P left inguinal hernia repair Z98.890; Z87.19 [facility] Medical History Alcohol use Arthritis Constipation Diabetes Dietary restriction High cholesterol HTN (hypertension) Left groin pain Non-smoker Wears glasses Surgical History (Updated 02/24/24 @ 09:26 by Raven Yanes LPN) Hx of colonoscopy S/P left inguinal hernia repair S/P vasectomy Family History (Updated 01/13/24 @ 08:19 by Shea El) Mother Diabetes Heart disease Sister Diabetes Heart disease Brother Diabetes Heart disease CAD (coronary artery disease) Social History (Updated 01/13/24 @ 08:20 by Shea El) Smoking Status: Never smoker alcohol intake: current details: social Assessment and Plan (No Qualifiers) Assessment and Plan (1) S/P left inguinal hernia repair: Status: Acute Plan: Patient is doing well for left inguinal robotic hernia repair. Patient tolerated the procedure well. Patient may return to normal activity in 2 weeks. Follow-up as needed. Asim Pillai MD Pager: [facility] [address] [place] [address] [address] [place] [address] Office: 02/24/24 0941 Date _ Asim Pillai MD [facility] Signature: Date _ (if applicable) CC: Dr. Chino Child MD Normal [facility] Bedside Glucoseon 02-11-2024 FINGERSTICK GLU 146 mg/dL High 74-106 [facility] Comment on above: Result Comment: PARAM GEMENT OF PATIENT CARE PER NURSING PROTOCOL Performed By: #### L 501.080 ####[facility] [id number] [facility] [place], [address] Discharge Instructionon 01-22 Discharge Instruction [facility] Medical Records Department [address] [place] [address] Instructions for Home/Discharge Instructions 02/11/24 0857 MR#: [id number] Acct: [id number] Name: DOTTYTANGELA HERMAN Rep #: [id number] : 1955 68 From: Asim Pillai MD PCP: Dr. Chino Child MD Status:REG [facility] Discharge Instructions Procedure Hernia Diet Discharge Diet: Light diet - advance as tolerated Activity Discharge Activity: May Not Drive (for 2-3 days or while taking narcotic pain meds.) and May Shower (with the bandage in place 1-2 days after surgery.) Lifting Restrictions: 20 pounds for 4 weeks. Additional Activity Instructions:: Climbing stairs is fine, walking is encouraged. Sitting in bed may be uncomfortable. Sitting up using your lateral muscles (sitting up sideways) is usually more comfortable. Do not drive, work heavy equipment of sign legal documents for 24 hours. If your hernia repair was an inguinal repair, you may have scrotal swelling, an ice pack and/or athletic support can provide more comfort. Pain medications may cause nausea, you should typically eat light foods as you take your pain medications. Pain medications may also cause constipation. If you have difficulty with this, discuss with your doctor. Resume aspirin tomorrow Alternate ibuprofen and Tylenol for pain, oxycodone for breakthrough pain. Dressing / Incision Call your doctor if your incision/area has: Continuous Slow Oozing, Sudden Increased Bleeding, Increased Pain/ Swelling, Increased Redness and Foul Smelling Discharge Call your doctor if you observe: Fever of 101 or Higher Suture Line Care: Avoid Pulling/Pushing and Avoid Pinching/Bending Remove Dressing in: 2 days (Remove clear bandages in 2 days, remove Steri-Strips in 7 to 10 days.) Follow Up Care Please Follow Up With: Maciej Pillai MD When: Please call to schedule 2 week follow up appointment. [phone] Test Results: Test results from this visit will be discussed in further detail at your follow-up appointment, if applicable. Discharge Plan Admission Attending Provider: Maciej Pillai Primary Care Provider: Chino Child Discharge Orders/Prescripti ons Prescriptions: New oxycodone 5 mg Tablet 5 - 10 mg PO Q4H PRN PRN (Reason: Pain Score 4-10/10) 5 Days Qty: 10 0RF No Action metformin 500 mg tablet 500 mg PO DAILY ramipril 2.5 mg capsule 2.5 mg PO DAILY multivitamin [Daily Multi-Vitamin] Tablet 1 tab PO DAILY aspirin 81 mg tablet,delayed release (DR/EC) 81 mg PO DAILY pitavastatin calcium 2 mg tablet 2 mg PO QPM Referrals / Follow Up: Chino Child MD [Primary Care Provider] - Disposition Disposition (needs filled in before D/C Order can be placed): Home, Self Care 02/11/24 0900 Asim Pillai MD CC: Dr. Chino Child MD Signed Normal [facility] Operative Reporton 4 Operative Report [facility] Medical Records Department [address] [place] [address] Operative Report 02/11/24 0838 MR#: [id number] Acct: [id number] Name: TANGELA STORM HERMAN Rep #: [id number] : 1955 68 From: Asim Pillai MD PCP: Dr. Chino Child MD Status:REG [facility] Location: [place] [address] Report of Operation Date of Procedure: 02/11/24 Pre-Operative Diagnosis: Left inguinal hernia Post-Operative Diagnosis: Same Surgery/Procedure Performed:: Robotic assisted laparoscopic left inguinal hernia repair with mesh Description of Surgical Findings:: Inflammation from the sigmoid to the peritoneum Type of Anesthesia: General/Regional Estimated Blood Loss (mL): 5 Description of Procedure: Patient was brought back to the operating room and general anesthesia was induced. The abdomen was prepped and draped in usual sterile fashion. Midline incision was made superior to the umbilicus and deepened to the fascia. The fascia was grasped and elevated and a Veress needle was placed into the abdomen and a drop test was performed. Next the abdomen was insufflated to 15 mmHg. The Veress needle was removed and a port was placed into the abdomen. Next the camera was placed into the abdomen and it was inspected and there were no injuries from entry. Patient was placed in steep Trendelenburg position and his inguinal regions were inspected. The patient had inguinal hernia on the left but nothing on the right. There was also some inflammation from the colon to the peritoneum. Next under direct visualization a right lateral 8 mm port was placed as well as a left lateral 8 mm port and the robot was docked. Using sharp dissection the adhesions from the colon were taken down. There is an area that might have been a diverticulum that was inflamed and stuck to the peritoneum. This area was sutured over using 3-0 silk suture to imbricate the area that was dissected free. There was no sign of colon injury. Next using electrocautery scissors the left lower quadrant peritoneum was incised. Dissection was carried inferiorly until the hernia sac was encountered. The hernia sac was slowly reduced into the abdomen. It was very long. Once it was fully reduced dissection was carried posteriorly. Next a ProGrip mesh was unfolded in the left groin and placed over the hernia defect. It covered the direct space as well. There was good coverage on all sides. Next the peritoneum was reapproximated using a running 3 OV lock suture. The mesh was completely covered by peritoneum at the end of the case. The robot was undocked and the ports were allowed to desufflate the abdomen. Next the ports were removed and the local anesthetic was injected into the incisions. The incisions were closed with interrupted 4-0 Monocryl sutures. Steri-Strips and bandages were applied. The scrotum was checked at the end the case and obtained both testicles. Patient was awoken and taken to PACU in stable condition and tolerated the procedure well. Grafts/Implants Used: ProGrip mesh in the left groin Admit VTE Documentation VTE Mechan Device Prophylaxis: SCD's 02/11/24 0857 Cosigner Signature (if applicable): CC: Dr. Asim Pillai MD; Dr. Chino Child MD Signed Normal [facility] Thin prep Papanicolaou smear with manual screeningOrdered By: Asim Pillai on 02-11-2024 Thin prep Papanicolaou smear with manual screening 146 mg/dL 74-106 [facility] Comment on above: MANAGEMENT OF PATIEN T CARE PER NURSING PROTOCOL 12 Lead EKGon 02-04-2024 12 Lead EKG [facility] Services [address] [place] [address] 12 Lead EKG 02/04/24 0702 MR#: [id number] Acct: [id number] Name: TANGELA STORM HERMAN Rep #: [id number] : 1955 68 From: Larry Brower MD Attending Dr: Dr. Asim Pillai MD Status: PRE [facility] Ordering Dr: Rg Cuello MD Date: 02/04/24 Location: [facility] Sex: M C Admitted: Test Reason : PRE-OP Blood Pressure : / mmHG Vent. Rate : 080 BPM Atrial Rate : 080 BPM P-R Int : 166 ms QRS Dur : 078 ms QT Int : 380 ms P-R-T Axes : 068 024 039 degrees QTc Int : 438 ms Normal sinus rhythm Normal ECG Confirmed by GURINDER MEMBRENO, LARRY ([id number]), deputy editor in chief LIZZY GARCIA ([id number]) on 02/05/2024 2:11:47 PM Referred By: Asim Pillai Confirmed By:LARRY BROWER MD 02/05/24 1411 Date _ Larry Brower MD CC: Dr. Asim Pillai MD; Dr. Rg Cuello MD; Dr. Chino Child MD Signed Normal [facility] Surgery Visit Reporton 01-13 Surgery Visit Report [facility] [address] [place] [address]. [address] [place] [address] OFFICE VISIT Date of Service: 01/13/24 MR#: [id number] Acct: [id number] Name: TANGELA STORMN Rep #: [id number] : 1955 Provider: Dr. Asim tang MD Age/Sex: 68/M Location: [facility] Status: Signed Intake Vital Signs 07/06/22 04:19 01/13/24 08:20 Height 5 ft 10 in 5 ft 10 in Weight: 188 lb BMI 26.9 BP 160/90 H Blood Pressure Location Rt brachial Position Sitting Respiration 18 Intake Visit Reasons: Inguinal Swelling Chief Complaint: [facility] Silver Service Waiter Required: No Is patient in pain?: Yes (left groin) Allergies No Known Allergies Allergy (Verified 01/13/24 08:22) Medications aspirin 81 mg tablet,delayed release 81 mg PO DAILY 01/13/24 [History Confirmed 01/13/24] metformin 500 mg tablet 500 mg PO DAILY 01/13/24 [History Confirmed 01/13/24] multivitamin (Daily Multi-Vitamin tablet) 1 tab PO DAILY 01/13/24 [History Confirmed 01/13/24] pitavastatin calcium 2 mg tablet 2 mg PO QPM 01/13/24 [History Confirmed 01/13/24] ramipril 2.5 mg capsule 2.5 mg PO DAILY 01/13/24 [History Confirmed 01/13/24] [facility] Medical History (Updated 01/13/24 @ 11:[address] Asim Pillai MD) Constipation Diabetes High cholesterol HTN (hypertension) Left groin pain Surgical History (Updated 01/13/24 @ 08:18 by Shea El) S/P vasectomy Family History (Updated 01/13/24 @ 08:19 by Shea El) Mother Diabetes Heart disease Sister Diabetes Heart disease Brother Diabetes Heart disease CAD (coronary artery disease) Social History (Updated 01/13/24 @ 08:20 by Shea El) Smoking Status: Never smoker alcohol intake: current details: social HPI HPI HPI: Patient is here complaining of left groin bulging. He says it is worse when he has to go to the bathroom or having a lot of gas. He says has been going on for about a year. He denies nausea or vomiting. He denies any pain on the opposite side. ROS General General: No weight change, appetite, fatigue, colon cancer, breast cancer or weakness HEENT HEENT: No difficulty swallowing, eye injury, eye surgery, swollen glands or hoarseness Endo Endocrine: Yes diabetes mellitus; No thyroid disease, thyroid cancer, Hair loss, heat intolerance or cold intolerance Skin Skin: No rash or changing moles Breast Breast: No left breast lump, right breast lump, nipple discharge, breast pain, abnormal mammogram, abnormal US or breast enlargement Musc Musculoskeletal: No back problems, arthritis, rheumatoid arthritis, gout or joint pain Cardio Cardiovascular: Yes high blood pressure; No murmur, pacemaker, heart disease, atrial fibrillation, heart attack, heart stent, palpitations, shortness of breat with exertion or chest pain Psych Psychiatric: No depression, anxiety or hearing voices Resp Respiratory: No shortness of breath, No sleep apnea, No cough, No COPD, No asthma, No emphysema and No wheezing Gastro Gastrointestinal: No abdominal pain, No nausea or vomiting, No diarrhea, Yes constipation, No blood in stool, No acid reflux, No hemorrhoids, No ulcers, No gallbladder problem and No black,tarry stools Clifford Hematologic: Yes blood thinners, No blood disorders, No bleeding, No anemia and No blood clots Neuro Neurologic: No system reviewed and no additional complaints, except as documented, No as per HPI, No abnormal gait, No abnormal hearing, No abnormal movements, No abnormal speech, No behavioral changes, No burning sensations, No confusion, No convulsions, No disequilibrium, No dizziness, No localized weakness, No frequent falls, No headache(s), No lack of coordination, No loss of vision, No memory loss, No numbness, No other visual disturbances, No radicular pain, No restless legs, No sensory deficit, No syncope, No tingling, No tremor(s), No weakness and No other Exam Const General: cooperative Orientation: alert and oriented x3 HENMT Head: normal to inspection Neck Neck: normal visual inspection and full ROM Chest Chest palpation inspection: normal inspection of the chest Resp Effort Inspection: normal respiratory effort Auscultation: clear to auscultation bilaterally Cardio Rate: regular rate Rhythm: regular rhythm GI Inspection: non-distended Palpation: soft, hernia indirect inguinal on the left and nontender Skin General: no rashes or lesions noted Neuro General: patient alert and patient oriented x3 Extrem General: full ROM Psych Appearance: grossly normal Mental Status: mental status grossly normal Assessment and Plan Assessment and Plan (1) Left inguinal hernia: Status: Acute Plan: The patient has a large but reducible left inguinal hernia that seems to contain colon. I discussed robotic assisted laparoscopic (more content not included)... Normal [facility] Basophil percentageOrdered B y: Chino Child on 12-08-2023 Bilirubin [Mass/Vol] 0.90 mg/dL 0.20-1.00 [facility] Comment on above: For patients on eltr ombopag therapy, use of Dimension [place] TBIL is not recommended. Chloride [Moles/Vol] 104 mmol/L 98-107 [facility] Cholesterol [Mass/Vol] 261 mg/dL <200 [facility] Comment on above: <200 mg/dL Desirable 200-240 mg/dL Borderline >240 mg/dL High Risk Glucose [Mass/Vol] 131 mg/dL 74-106 [facility] Comment on above: Fasting Glucose resu lt greater than or equal to 126 mg/dL suggests DIABETES MELLITUS per A.D.A. criteria. Potassium [Moles/Vol] 3.7 mmol/L 3.5-5.[address] [facility] Protein [Mass/Vol] 6.9 g/dL 6.4-8.2 [facility] Sodium [Moles/Vol] 139 mmol/L 136-145 [facility] Triglyceride [Mass/Vol] 126 mg/dL <199 [facility] Comment on above: The drugs N-Acetylcy steine and Metamizole may falsely depress this assay.Serum Triglycerides Reference Interval Normal <150 mg/dL Borderline high 150 - 199 mg/dL High 200 - 499 mg/dL Very High > or = 500 mg/dL Comprehensive Metabolic Prof ilon 12-08-2023 Albumin [Mass/Vol] 3.8 g/dL Normal 3.2-5.0 [facility] Comment on above: Order Comment: Order Date: 09/07/23 Order Info: [id number] - CMP Order Info: [id number] - LIPID Performed By: #### L [id number], L500.4100, L500.4050, L502.0250 #### [facility] [address] [place], [address] Albumin/Globulin [Mass ratio] 1.2 {ratio} Normal 0.9-2.4 [facility] Comment on above: Order Comment: Order Date: 09/07/23 Order Info: [id number] - CMP Order Info: [id number] - LIPID Performed By: #### L [id number], L500.4100, L500.4050, L502.0250 #### [facility] [address] [place], [address] ALK P 45 U/L Normal 45-117 [facility] Comment on above: Order Comment: Order Date: 09/07/23 Order Info: [id number] - CMP Order Info: [id number] - LIPID Performed By: #### L [id number], L500.4100, L500.4050, L502.0250 #### [facility] [address] [place], [address] ALT [Catalytic activity/Vol] 25 U/L Normal 16-61 [facility] Comment on above: Order Comment: Order Date: 09/07/23 Order Info: [id number] - CMP Order Info: [id number] - LIPID Performed By: #### L [id number], L500.4100, L500.4050, L502.0250 #### [facility] [address] [place], [address] AST [Catalytic activity/Vol] 12 U/L Low 15-37 [facility] Comment on above: Order Comment: Order Date: 09/07/23 Order Info: [id number] - CMP Order Info: [id number] - LIPID Performed By: #### L [id number], L500.4100, L500.4050, L502.0250 #### [facility] [address] [place], [address] Bilirubin [Mass/Vol] 0.90 mg/dL Normal 0.20-1.00 [facility] Comment on above: Order Comment: Order Date: 09/07/23 Order Info: [id number] - CMP Order Info: [id number] - LIPID Result Comment: For patients on eltrombopag therapy, use of Dimension [place] TBIL is not recommended. Performed By: #### L [id number], L500.4100, L500.4050, L502.0250 #### [facility] [address] [place], [address] BUN/CRE 11.5 RATIO Normal 10-20 [facility] Comment on above: Order Comment: Order Date: 09/07/23 Order Info: [id number] - CMP Order Info: [id number] - LIPID Performed By: #### L [id number], L500.4100, L500.4050, L502.0250 #### [facility] [address] [place], [address] CA,Total 9.2 mg/dL Normal 8.5-10.1 [facility] Comment on above: Order Comment: Order Date: 09/07/23 Order Info: [id number] - CMP Order Info: [id number] - LIPID Performed By: #### L 501.9985, L500.4100, L500.4050, L502.0250 #### [facility] [address] [place], [address] Chloride [Moles/Vol] 104 mmol/L Normal 98-107 [facility] Comment on above: Order Comment: Order Date: 09/07/23 Order Info: [id number] - CMP Order Info: [id number] - LIPID Performed By: #### L 501.9985, L500.4100, L500.4050, L502.0250 #### [facility] [address] [place], [address] CO2 [Moles/Vol] 27.0 mmol/L Normal 21.0-32.0 [facility] Comment on above: Order Comment: Order Date: 09/07/23 Order Info: 0786- - CMP Order Info: [id number] - LIPID Performed By: #### L 501.9985, L500.4100, L500.4050, L502.0250 #### [facility] [address] [place], [address] Creatinine [Mass/Vol] 1.30 mg/dL Normal 0.70-1.[address] [facility] Comment on above: Order Comment: Order Date: 09/07/23 Order Info: 0786- - CMP Order Info: [id number] - LIPID Result Comment: The validity of the calculated GFR GFRAA in patients over 70 years has not been determined. Clinical correlation is essential. Performed By: #### L 501.9985, L500.4100, L500.4050, L502.0250 #### [facility] [address] [place], [address] EST GFR - AA 71 mL/min Normal >60 [facility] Comment on above: Order Comment: Order Date: 09/07/23 Order Info: [id number] - CMP Order Info: [id number] - LIPID Result Comment: Afri can [facility] GFR Calc Performed By: #### L 501.9985, L500.4100, L500.4050, L502.0250 #### [facility] [address] [place], [address] GAP 8 Normal 5-15 [facility] Comment on above: Order Comment: Order Date: 09/07/23 Order Info: [id number] - CMP Order Info: [id number] - LIPID Performed By: #### L 501.9985, L500.4100, L500.4050, L502.0250 #### [facility] [address] [place], [address] GFR/1.73 sq M.predicted among non-blacks MDRD (S/P/Bld) [Vol rate/Area] 59 mL/min/{1.73_m2} Low >60 [facility] Comment on above: Order Comment: Order Date: 09/07/23 Order Info: 07 - CMP Order Info: [id number] - LIPID Result Comment: Non- GFR Calc Performed By: #### L 501.9985, L500.4100, L500.4050, L502.0250 #### [facility] [address] [place], [address] Globulin (S) [Mass/Vol] 3.1 g/dL Normal 2.2-4.2 [facility] Comment on above: Order Comment: Order Date: 09/07/23 Order Info: [id number] - CMP Order Info: [id number] - LIPID Performed By: #### L [id number], L500.4100, L500.4050, L502.0250 #### [facility] [address] [place], [address] Glucose [Mass/Vol] 131 mg/dL High 74-106 [facility] Comment on above: Order Comment: Order Date: 09/07/23 Order Info: [id number] - CMP Order Info: [id number] - LIPID Result Comment: Fast ing Glucose result greater than or equal to 126 mg/dL suggests DIABETES MELLITUS per A.D.A. criteria. Performed By: #### L 501.9985, L500.4100, L500.4050, L502.0250 #### [facility] [address] [place], [address] Potassium [Moles/Vol] 3.7 mmol/L Normal 3.5-5.[address] [facility] Comment on above: Order Comment: Order Date: 09/07/23 Order Info: [id number] - CMP Order Info: [id number] - LIPID Performed By: #### L [id number], L500.4100, L500.4050, L502.0250 #### [facility] [address] [place], [address] Sodium [Moles/Vol] 139 mmol/L Normal 136-145 [facility] Comment on above: Order Comment: Order Date: 09/07/23 Order Info: 0786- - CMP Order Info: [id number] - LIPID Performed By: #### L [id number], L500.4100, L500.4050, L502.0250 #### [facility] [address] [place], [address] T PROT 6.9 g/dL Normal 6.4-8.2 [facility] Comment on above: Order Comment: Order Date: 09/07/23 Order Info: 0786- - CMP Order Info: [id number] - LIPID Performed By: #### L [id number], L500.4100, L500.4050, L502.0250 #### [facility] [address] [place], [address] Urea nitrogen [Mass/Vol] 15 mg/dL Normal 7-18 [facility] Comment on above: Order Comment: Order Date: 09/07/23 Order Info: [id number] - CMP Order Info: [id number] - LIPID Performed By: #### L [id number], L500.4100, L500.4050, L502.0250 #### [facility] [address] [place], [place], [address] Hemoglobin A1con 12-08-2023 HbA1c (Bld) [Mass fraction] 6.2 % High 3.8-5.6 [facility] Comment on above: Order Comment: Order Date: 09/07/23Order Info: [id number] - A1C Result Comment: Norm al < 5.7 % Prediabetic 5.7 - 6.4 % Diabetic >or= 6.5 % Please note range changes. Performed By: #### L 501.9985, L500.4100, L500.4050, L502.0250 ####[id number] [facility] [place], [place], [address] High density lipoprotein (HD L) measurementOrdered By: Chino Child on 12-08-2023 Cholesterol in HDL (Body fld) [Mass/Vol] 46 mg/dL >40 [facility] Comment on above: The drugs N-Acetylcy steine and Metamizole may falsely depress this assay. Reference Range HDL <40 mg/dL Low HDL Cholesterol HDL >or= 60 mg/dL High HDL Cholesterol Laboratory - Chemistry and C hemistry - challengeOrdered By: Chino Child on 12-08-2023 Albumin/Globulin [Mass ratio] 1.2 {ratio} 0.9-2.4 [facility] ALP [Catalytic activity/Vol] 45 U/L 45-117 [facility] ALT [Catalytic activity/Vol] 25 U/L 16-61 [facility] CO2 [Moles/Vol] 27.0 mmol/L 21.0-32.0 [facility] Globulin (S) [Mass/Vol] 3.1 g/dL 2.2-4.2 [facility] Urea nitrogen/Creatinine [Mass ratio] 11.5 mg/mg 10-20 [facility] Lipid Profileon 12-08-2023 Cholesterol [Mass/Vol] 261 mg/dL High 200 [facility] Comment on above: Order Comment: Order Date: 09/07/23 Order Info: [id number] - CMP Order Info: [id number] - LIPID Result Comment: <200 mg/dL Desirable 200-240 mg/dL Borderline >240 mg/dL High Risk Performed By: #### L 501.9985, L500.4100, L500.4050, L502.0250 #### [facility] [address] [place], [address] Cholesterol in HDL [Mass/Vol] 46 mg/dL Normal [facility] Comment on above: Order Comment: Order Date: 09/07/23 Order Info: [id number] - CMP Order Info: [id number] - LIPID Result Comment: The drugs N-Acetylcysteine and Metamizole may falsely depress this assay. Reference Range HDL <40 mg/dL Low HDL Cholesterol HDL >or= 60 mg/dL High HDL Cholesterol Performed By: #### L 501.9985, L500.4100, L500.4050, L502.0250 #### [facility] [address] [place], [address] Cholesterol in LDL [Mass/Vol] 190 mg/dL High 0-130 [facility] Comment on above: Order Comment: Order Date: 09/07/23 Order Info: [id number] - CMP Order Info: [id number] - LIPID Performed By: #### L [id number], L500.4100, L500.4050, L502.0250 #### [facility] [address] [place], [address] Cholesterol in VLDL [Mass/Vol] 25 mg/dL Normal 5-40 [facility] Comment on above: Order Comment: Order Date: 09/07/23 Order Info: [id number] - CMP Order Info: [id number] - LIPID Performed By: #### L [id number], L500.4100, L500.4050, L502.0250 #### [facility] [address] [place], [address] Triglyceride [Mass/Vol] 126 mg/dL Normal [facility] Comment on above: Order Comment: Order Date: 09/07/23 Order Info: [id number] - CMP Order Info: [id number] - LIPID Result Comment: The drugs N-Acetylcysteine and Metamizole may falsely depress this assay. Serum Triglycerides Reference Interval Normal <150 mg/dL Borderline high 150 - 199 mg/dL High 200 - 499 mg/dL Very High > or = 500 mg/dL Performed By: #### L 501.9985, L500.4100, L500.4050, L502.0250 #### [facility] [address] [place], [address] Low density lipoprotein (LDL ) cholesterol measurementOrdered By: Chino Child on 12-08-2023 Cholesterol in LDL (Body fld) [Moles/Vol] 190 mg/dL 0-130 [facility] Microalb:Creat Ratio,Random URon 12-08-2023 Creatinine [Mass/Vol] 132.00 mg/dL Normal NO RAN GE EST. [facility] Comment on above: Order Comment: Order Date: 09/07/23 Order Info: [id number] - MIACRE Performed By: #### L 501.9985, L500.4100, L500.4050, L502.0250 #### [facility] [address] [place], [address] MALB:CRE 19.8 mg/g CRE Normal <30 mg/g CRE [facility] Comment on above: Order Comment: Order Date: 09/07/23 Order Info: [id number] - MIACRE Performed By: #### L 501.9985, L500.4100, L500.4050, L502.0250 #### [facility] [address] [place], [address] MICROALBUMIN,UR 26.2 mg/L Normal NO RANGE EST. [facility] Comment on above: Order Comment: Order Date: 09/07/23 Order Info: [id number] - MIACRE Performed By: #### L [id number], L500.4100, L500.4050, L502.0250 #### [facility] [address] [place], [address] No Panel InformationOrdered By: Chino Child on 12-08-2023 Estimated GFR (MDRD) Amer 71 mL/min >60 [facility] Comment on above: GFR Calc Estimated GFR (MDRD) Non-Af Amer 59 mL/min >60 [facility] Comment on above: Non- GFR Calc Serum or plasma calcium darline urement (mass/volume)Ordered By: Chino Child on 12-08-2023 Calcium [Mass/Vol] 9.2 mg/dL 8.5-10.1 [facility] Serum or plasma creatinine m easurement (mass/volume)Ordered By: Chino Child on 12-08-2023 Creatinine [Mass/Vol] 1.30 mg/dL 0.70-1.[address] [facility] Comment on above: The validity of the calculated GFR & GFRAA in patients over 70 years has not been determined. Clinical correlation is essential. Serum or plasma urea nitroge n measurement (mass/volume)Ordered By: Chino Child on 12-08-2023 Urea nitrogen [Mass/Vol] 15 mg/dL 7-18 [facility] Thin prep Papanicolaou smear with manual screeningOrdered By: Chino Child on 12-08-2023 Thin prep Papanicolaou smear with manual screening 3.8 g/dL 3.2-5.0 [facility] Thin prep Papanicolaou smear with manual screening 12 U/L 15-37 [facility] Thin prep Papanicolaou smear with manual screening 8 5-15 [facility] Thin prep Papanicolaou smear with manual screening 26.2 mg/L NO RANGE EST. [facility] Urine albumin/creatinine rat io for detection of microalbuminuriaOrdered By: Chino Child on 12-08-2023 Albumin/Creatinine DL <= 1.0 mg/L (24H U) [Ratio] 19.8 mg/g CRE <30 [facility] Urine creatinine measurement (mass/volume)Ordered By: Chino Child on 12-08-2023 Creatinine (U) [Mass/Vol] 132.00 mg/dL NO RANGE EST. [facility] Very low density lipoprotein (VLDL) cholesterol measurementOrdered By: Chino Child on 12-08-2023 Cholesterol in VLDL Calc [Moles/Vol] 25 mg/dL 5-40 [facility] Whole blood hemoglobin A1c/t otal hemoglobin ratio (mass fraction)Ordered By: Chino Child on 12-08-2023 HbA1c (Bld) [Mass fraction] 6.2 % 3.8-5.6 [facility] Comment on above: Normal < 5.7 % Predi abetic 5.7 - 6.4 % Diabetic >or= 6.5 % Please note range changes. Basophil percentageOrdered B y: Chino Child on 06-03-2023 Bilirubin [Mass/Vol] 0.40 mg/dL 0.20-1.00 [facility] Comment on above: For patients on eltr ombopag therapy, use of Dimension [place] TBIL is not recommended. Chloride [Moles/Vol] 108 mmol/L 98-107 [facility] Cholesterol [Mass/Vol] 222 mg/dL <200 [facility] Comment on above: <200 mg/dL Desirable 200-240 mg/dL Borderline >240 mg/dL High Risk Glucose [Mass/Vol] 105 mg/dL 74-106 [facility] Comment on above: Fasting Glucose resu lt from 100 to 125 mg/dL suggests IMPAIRED HOMEOSTASIS per A.D.A. criteria. Potassium [Moles/Vol] 4.0 mmol/L 3.5-5.[address] [facility] Protein [Mass/Vol] 6.7 g/dL 6.4-8.2 [facility] Sodium [Moles/Vol] 141 mmol/L 136-145 [facility] Triglyceride [Mass/Vol] 97 mg/dL <199 [facility] Comment on above: The drugs N-Acetylcy steine and Metamizole may falsely depress this assay.Serum Triglycerides Reference Interval Normal <150 mg/dL Borderline high 150 - 199 mg/dL High 200 - 499 mg/dL Very High > or = 500 mg/dL Comprehensive Metabolic Prof ilon 06-03-2023 Albumin [Mass/Vol] 3.4 g/dL Normal 3.2-5.0 [facility] Comment on above: Order Comment: Order Date: 04/09/23 Order Info: [id number] - CMP Order Info: [id number] - LIPID Performed By: #### L 501.9985, L502.0250, L500.1697, L500.4050 #### [facility] [address] [place], [address] Albumin/Globulin [Mass ratio] 1.0 {ratio} Normal 0.9-2.4 [facility] Comment on above: Order Comment: Order Date: 04/09/23 Order Info: [id number] - CMP Order Info: [id number] - LIPID Performed By: #### L [id number], L502.0250, L500.4100, L500.4050 #### [facility] [address] [place], [address] ALK P 54 U/L Normal 45-117 [facility] Comment on above: Order Comment: Order Date: 04/09/23 Order Info: 0786- - CMP Order Info: [id number] - LIPID Performed By: #### L [id number], L502.0250, L500.4100, L500.4050 #### [facility] [address] [place], [address] ALT [Catalytic activity/Vol] 19 U/L Normal 16-61 [facility] Comment on above: Order Comment: Order Date: 04/09/23 Order Info: 0786- - CMP Order Info: [id number] - LIPID Performed By: #### L [id number], L502.0250, L500.4100, L500.4050 #### [facility] [address] [place], [address] AST [Catalytic activity/Vol] 20 U/L Normal 15-37 [facility] Comment on above: Order Comment: Order Date: 04/09/23 Order Info: [id number] - CMP Order Info: [id number] - LIPID Performed By: #### L [id number], L502.0250, L500.4100, L500.4050 #### [facility] [address] [place], [address] Bilirubin [Mass/Vol] 0.40 mg/dL Normal 0.20-1.00 [facility] Comment on above: Order Comment: Order Date: 04/09/23 Order Info: [id number] - CMP Order Info: [id number] - LIPID Result Comment: For patients on eltrombopag therapy, use of Dimension [place] TBIL is not recommended. Performed By: #### L 501.9985, L502.0250, L500.4100, L500.4050 #### [facility] [address] [place], [address] BUN/CRE 14.8 RATIO Normal 10-20 [facility] Comment on above: Order Comment: Order Date: 04/09/23 Order Info: [id number] - CMP Order Info: [id number] - LIPID Performed By: #### L 501.9985, L502.0250, L500.4100, L500.4050 #### [facility] [address] [place], [address] CA,Total 9.0 mg/dL Normal 8.5-10.1 [facility] Comment on above: Order Comment: Order Date: 04/09/23 Order Info: [id number] - CMP Order Info: [id number] - LIPID Performed By: #### L 501.9985, L502.0250, L500.4100, L500.4050 #### [facility] [address] [place], [address] Chloride [Moles/Vol] 108 mmol/L High 98-107 [facility] Comment on above: Order Comment: Order Date: 04/09/23 Order Info: [id number] - CMP Order Info: [id number] - LIPID Performed By: #### L 501.9985, L502.0250, L500.4100, L500.4050 #### [facility] [address] [place], [address] CO2 [Moles/Vol] 27.0 mmol/L Normal 21.0-32.0 [facility] Comment on above: Order Comment: Order Date: 04/09/23 Order Info: [id number] - CMP Order Info: [id number] - LIPID Performed By: #### L 501.9985, L502.0250, L500.4100, L500.4050 #### [facility] [address] [place], [address] Creatinine [Mass/Vol] 1.28 mg/dL Normal 0.70-1.[address] [facility] Comment on above: Order Comment: Order Date: 04/09/23 Order Info: [id number] - CMP Order Info: [id number] - LIPID Result Comment: The validity of the calculated GFR GFRAA in patients over 70 years has not been determined. Clinical correlation is essential. Performed By: #### L 501.9985, L502.0250, L500.4100, L500.4050 #### [facility] [address] [place], [address] EST GFR - AA 72 mL/min Normal >60 [facility] Comment on above: Order Comment: Order Date: 04/09/23 Order Info: [id number] - CMP Order Info: [id number] - LIPID Result Comment: Afri can [facility] GFR Calc Performed By: #### L 501.9985, L502.0250, L500.4100, L500.4050 #### [facility] [address] [place], [address] GAP 6 Normal 5-15 [facility] Comment on above: Order Comment: Order Date: 04/09/23 Order Info: [id number] - CMP Order Info: [id number] - LIPID Performed By: #### L 501.9985, L502.0250, L500.4100, L500.4050 #### [facility] [address] [place], [address] GFR/1.73 sq M.predicted among non-blacks MDRD (S/P/Bld) [Vol rate/Area] 60 mL/min/{1.73_m2} Normal >60 [facility] Comment on above: Order Comment: Order Date: 04/09/23 Order Info: [id number] - CMP Order Info: [id number] - LIPID Result Comment: Non- GFR Calc Performed By: #### L 501.9985, L502.0250, L500.4100, L500.4050 #### [facility] [address] [place], [address] Globulin (S) [Mass/Vol] 3.3 g/dL Normal 2.2-4.2 [facility] Comment on above: Order Comment: Order Date: 04/09/23 Order Info: 0786 - CMP Order Info: [id number] - LIPID Performed By: #### L 501.9985, L502.0250, L500.4100, L500.4050 #### [facility] [address] [place], [address] Glucose [Mass/Vol] 105 mg/dL Normal 74-106 [facility] Comment on above: Order Comment: Order Date: 04/09/23 Order Info: 0786- - CMP Order Info: [id number] - LIPID Result Comment: Fast ing Glucose result from 100 to 125 mg/dL suggests IMPAIRED HOMEOSTASIS per A.D.A. criteria. Performed By: #### L 501.9985, L502.0250, L500.4100, L500.4050 #### [facility] [address] [place], [address] Potassium [Moles/Vol] 4.0 mmol/L Normal 3.5-5.[address] [facility] Comment on above: Order Comment: Order Date: 04/09/23 Order Info: [id number] - CMP Order Info: [id number] - LIPID Performed By: #### L 501.9985, L502.0250, L500.4100, L500.4050 #### [facility] [address] [place], [address] Sodium [Moles/Vol] 141 mmol/L Normal 136-145 [facility] Comment on above: Order Comment: Order Date: 04/09/23 Order Info: [id number] - CMP Order Info: [id number] - LIPID Performed By: #### L 501.9985, L502.0250, L500.4100, L500.4050 #### [facility] [address] [place], [address] T PROT 6.7 g/dL Normal 6.4-8.2 [facility] Comment on above: Order Comment: Order Date: 04/09/23 Order Info: [id number] - CMP Order Info: [id number] - LIPID Performed By: #### L 501.9985, L502.0250, L500.4100, L500.4050 #### [facility] [address] [place], [address] Urea nitrogen [Mass/Vol] 19 mg/dL High 06-09 [facility] Comment on above: Order Comment: Order Date: 04/09/23 Order Info: [id number] - CMP Order Info: [id number] - LIPID Performed By: #### L 501.9985, L502.0250, L500.4100, L500.4050 #### [facility] [address] [place], [address] Hemoglobin A1con 06-03-2023 HbA1c (Bld) [Mass fraction] 6.4 % High 3.8-5.6 [facility] Comment on above: Order Comment: Order Date: 04/09/23 Order Info: [id number] - A1C Result Comment: Norm al < 5.7 % Prediabetic 5.7 - 6.4 % Diabetic >or= 6.5 % Please note range changes. Performed By: #### L 501.9985, L502.0250, L500.4100, L500.4050 #### [facility] [address] [place], [address] Laboratory - Chemistry and C hemistry - challengeOrdered By: Chino Child on 06-03-2023 ALP [Catalytic activity/Vol] 54 U/L 45-117 [facility] ALT [Catalytic activity/Vol] 19 U/L 16-61 [facility] CO2 [Moles/Vol] 27.0 mmol/L 21.0-32.0 [facility] Globulin (S) [Mass/Vol] 3.3 g/dL 2.2-4.2 [facility] Urea nitrogen/Creatinine [Mass ratio] 14.8 mg/mg 10-20 [facility] Lipid Profileon 06-03-2023 Cholesterol [Mass/Vol] 222 mg/dL High 200 [facility] Comment on above: Order Comment: Order Date: 04/09/23 Order Info: 0786-1 - CMP Order Info: [id number] - LIPID Result Comment: <200 mg/dL Desirable 200-240 mg/dL Borderline >240 mg/dL High Risk Performed By: #### L 501.9985, L502.0250, L500.4100, L500.4050 #### [facility] [address] [place], [address] Cholesterol in HDL [Mass/Vol] 45 mg/dL Normal [facility] Comment on above: Order Comment: Order Date: 04/09/23 Order Info: 0786-1 - CMP Order Info: [id number] - LIPID Result Comment: The drugs N-Acetylcysteine and Metamizole may falsely depress this assay. Reference Range HDL <40 mg/dL Low HDL Cholesterol HDL >or= 60 mg/dL High HDL Cholesterol Performed By: #### L 501.9985, L502.0250, L500.4100, L500.4050 #### [facility] [address] [place], [address] Cholesterol in LDL [Mass/Vol] 158 mg/dL High 0-130 [facility] Comment on above: Order Comment: Order Date: 04/09/23 Order Info: [id number] - CMP Order Info: [id number] - LIPID Performed By: #### L 501.9985, L502.0250, L500.4100, L500.4050 #### [facility] [address] [place], [place], [address] Cholesterol in VLDL [Mass/Vol] 19 mg/dL Normal 5-40 [facility] Comment on above: Order Comment: Order Date: 04/09/23 Order Info: [id number] - CMP Order Info: [id number] - LIPID Performed By: #### L 501.9985, L502.0250, L500.4100, L500.4050 #### [facility] [address] [place], [place], [address] Triglyceride [Mass/Vol] 97 mg/dL Normal [facility] Comment on above: Order Comment: Order Date: 04/09/23 Order Info: [id number] - CMP Order Info: [id number] - LIPID Result Comment: The drugs N-Acetylcysteine and Metamizole may falsely depress this assay. Serum Triglycerides Reference Interval Normal <150 mg/dL Borderline high 150 - 199 mg/dL High 200 - 499 mg/dL Very High > or = 500 mg/dL Performed By: #### L 501.9985, L502.0250, L500.4100, L500.4050 #### [facility] [address] [place], [address] Microalb:Creat Ratio,Random URon 06-03-2023 Creatinine [Mass/Vol] 146.00 mg/dL Normal NO RAN GE EST. [facility] Comment on above: Order Comment: Order Date: 04/09/23 Order Info: [id number] - MIACRE Performed By: #### L 501.9985, L502.0250, L500.4100, L500.4050 #### [facility] [address] [place], [address] MALB:CRE 22.2 mg/g CRE Normal <30 mg/g CRE [facility] Comment on above: Order Comment: Order Date: 04/09/23 Order Info: [id number] - MIACRE Performed By: #### L 501.9985, L502.0250, L500.4100, L500.4050 #### [facility] [address] [place], [place], [address] MICROALBUMIN,UR 32.4 mg/L Normal NO RANGE EST. [facility] Comment on above: Order Comment: Order Date: 04/09/23 Order Info: [id number] - MIACRE Performed By: #### L 501.9985, L502.0250, L500.4100, L500.4050 #### [facility] [address] [place], [address] No Panel InformationOrdered By: Chino Child on 06-03-2023 Estimated GFR (MDRD) Amer 72 mL/min >60 [facility] Comment on above: GFR Calc Estimated GFR (MDRD) Non-Af Amer 60 mL/min >60 [facility] Comment on above: Non- GFR Calc Urine Microalbumin/Creatinine Ratio 22.2 mg/g CRE <30 [facility] Serum or plasma albumin darline urement (mass/volume)Ordered By: Chino Child on 06-03-2023 Albumin [Mass/Vol] 3.4 g/dL 3.2-5.0 [facility] Serum or plasma albumin/glob ulin mass ratioOrdered By: Chino Child on 06-03-2023 Albumin/Globulin [Mass ratio] 1.0 {ratio} 0.9-2.4 [facility] Serum or plasma calcium darline urement (mass/volume)Ordered By: Chino Child on 06-03-2023 Calcium [Mass/Vol] 9.0 mg/dL 8.5-10.1 [facility] Serum or plasma cholesterol in HDL measurement (mass/volume)Ordered By: Chino Child on 06-03-2023 Cholesterol in HDL [Mass/Vol] 45 mg/dL >40 [facility] Comment on above: The drugs N-Acetylcy steine and Metamizole may falsely depress this assay. Reference Range HDL <40 mg/dL Low HDL Cholesterol HDL >or= 60 mg/dL High HDL Cholesterol Serum or plasma cholesterol in VLDL measurement (mass/volume)Ordered By: Chino Child on 06-03-2023 Cholesterol in VLDL [Mass/Vol] 19 mg/dL 5-40 [facility] Serum or plasma creatinine m easurement (mass/volume)Ordered By: Chino Child on 06-03-2023 Creatinine [Mass/Vol] 1.28 mg/dL 0.70-1.[address] [facility] Comment on above: The validity of the calculated GFR & GFRAA in patients over 70 years has not been determined. Clinical correlation is essential. Serum or plasma low density lipoprotein (LDL) cholesterol measurement (mass/volume)Ordered By: Chino Child on 06-03-2023 Cholesterol in LDL [Mass/Vol] 158 mg/dL 0-130 [facility] Serum or plasma urea nitroge n measurement (mass/volume)Ordered By: Chino Child on 06-03-2023 Urea nitrogen [Mass/Vol] 19 mg/dL 7-18 [facility] Thin prep Papanicolaou smear with manual screeningOrdered By: Chino Child on 06-03-2023 Thin prep Papanicolaou smear with manual screening 20 U/L 15-37 [facility] Thin prep Papanicolaou smear with manual screening 6 5-15 [facility] Thin prep Papanicolaou smear with manual screening 32.4 mg/L NO RANGE EST. [facility] Urine creatinine measurement (mass/volume)Ordered By: Chino Child on 06-03-2023 Creatinine (U) [Mass/Vol] 146.00 mg/dL NO RANGE EST. [facility] Whole blood hemoglobin A1c/t otal hemoglobin ratio (mass fraction)Ordered By: Chino Child on 06-03-2023 HbA1c (Bld) [Mass fraction] 6.4 % 3.8-5.6 [facility] Comment on above: Normal < 5.7 % Predi abetic 5.7 - 6.4 % Diabetic >or= 6.5 % Please note range changes. C-Peptideon 03-07-2023 C PEPTIDE 2.7 ng/mL Normal 1.1-4.4 [facility] Comment on above: Order Comment: LUCY Saenz ADD TSH A1C CPEPTIDE TO BLOOD DRAWN 03/04/23 FREIDA Result Comment: C-Pe ptide reference interval is for fasting patients. Performed at: [facility] [address] [id number] Merchant Mariner: Sergey Batista PhD, Phone: [phone] Performed By: #### L 501.9910, L500.4100, L501.9985, L501.9520, L3100.7750, L500.4050 ####[facility] [address] [place], [place], [id number] Hemoglobin A1con 03-05-2023 HbA1c (Bld) [Mass fraction] 13.5 % High 3.8-5.6 [facility] Comment on above: Order Comment: LUCY Saenz ADD TSH A1C CPEPTIDE TO BLOOD DRAWN 03/04/23 FREIDA Result Comment: Norm al < 5.7 % Prediabetic 5.7 - 6.4 % Diabetic >or= 6.5 % Please note range changes. Performed By: #### L 501.9910, L500.4100, L501.9985, L501.9520, L3100.7750, L500.4050 ####[facility] [address] [place], [place], [id number] Thyroid Stim Hormone (TSH)on 03-05-2023 TSH 2.28 uIU/mL Normal 0.358-3.74 [facility] Comment on above: Order Comment: LUCY Saenz ADD TSH A1C CPEPTIDE TO BLOOD DRAWN 03/04/23 FREIDA Performed By: #### L 501.9910, L500.4100, L501.9985, L501.9520, L3100.7750, L500.4050 ####[facility] [address] [place], [place], [id number] Basophil percentageOrdered B y: Chino Child on 03-04-2023 Bilirubin [Mass/Vol] 0.50 mg/dL 0.20-1.00 [facility] Comment on above: For patients on eltr ombopag therapy, use of Dimension [place] TBIL is not recommended. Chloride [Moles/Vol] 101 mmol/L 98-107 [facility] Cholesterol [Mass/Vol] 251 mg/dL <200 [facility] Comment on above: <200 mg/dL Desirable 200-240 mg/dL Borderline >240 mg/dL High Risk Glucose [Mass/Vol] 476 mg/dL 74-106 [facility] Comment on above: Critical Result(s) C alled at: 16:38:20 03/04/2023 by: [facility]ilyn madera [facility] Results read back by same.Glucose result greater than or equal to 200 mg/dLsuggests DIABETES MELLITUS per A.D.A. criteria. Potassium [Moles/Vol] 4.1 mmol/L 3.5-5.[address] [facility] Protein [Mass/Vol] 6.8 g/dL 6.4-8.2 [facility] Sodium [Moles/Vol] 132 mmol/L 136-145 [facility] Triglyceride [Mass/Vol] 146 mg/dL <199 [facility] Comment on above: The drugs N-Acetylcy steine and Metamizole may falsely depress this assay.Serum Triglycerides Reference Interval Normal <150 mg/dL Borderline high 150 - 199 mg/dL High 200 - 499 mg/dL Very High > or = 500 mg/dL Comprehensive Metabolic Prof ilon 03-04-2023 Albumin [Mass/Vol] 3.7 g/dL Normal 3.2-5.0 [facility] Comment on above: Performed By: #### L 501.9910, L500.4100, L501.9985, L501.9520, L3100.7750, L500.4050 ####[facility] [address] [place], [address] Albumin/Globulin [Mass ratio] 1.2 {ratio} Normal 0.9-2.4 [facility] Comment on above: Performed By: #### L 501.9910, L500.4100, L501.9985, L501.9520, L3100.7750, L500.4050 ####[facility] [address] [place], [address] ALK P 80 U/L Normal 45-117 [facility] Comment on above: Performed By: #### L 501.9910, L500.4100, L501.9985, L501.9520, L3100.7750, L500.4050 ####[facility] [address] [place], [address] ALT [Catalytic activity/Vol] 26 U/L Normal 16-61 [facility] Comment on above: Performed By: #### L 501.9910, L500.4100, L501.9985, L501.9520, L3100.7750, L500.4050 ####[facility] [address] [place], [address] AST [Catalytic activity/Vol] 15 U/L Normal 15-37 [facility] Comment on above: Performed By: #### L 501.9910, L500.4100, L501.9985, L501.9520, L3100.7750, L500.4050 ####[facility] [address] [place], [address] Bilirubin [Mass/Vol] 0.50 mg/dL Normal 0.20-1.00 [facility] Comment on above: Result Comment: For patients on eltrombopag therapy, use of Dimension [place] TBIL is not recommended. Performed By: #### L 501.9910, L500.4100, L501.9985, L501.9520, L3100.7750, L500.4050 ####[facility] [address] [place], [address] BUN/CRE 12.8 RATIO Normal 10-20 [facility] Comment on above: Performed By: #### L 501.9910, L500.4100, L501.9985, L501.9520, L3100.7750, L500.4050 ####[facility] [address] [place], [address] CA,Total 8.9 mg/dL Normal 8.5-10.1 [facility] Comment on above: Performed By: #### L 501.9910, L500.4100, L501.9985, L501.9520, L3100.7750, L500.4050 ####[facility] [address] [place], [address] Chloride [Moles/Vol] 101 mmol/L Normal 98-107 [facility] Comment on above: Performed By: #### L 501.9910, L500.4100, L501.9985, L501.9520, L3100.7750, L500.4050 ####[facility] [address] [place], [address] CO2 [Moles/Vol] 25.0 mmol/L Normal 21.0-32.0 [facility] Comment on above: Performed By: #### L 501.9910, L500.4100, L501.9985, L501.9520, L3100.7750, L500.4050 ####[facility] [address] [place], [address] Creatinine [Mass/Vol] 1.25 mg/dL Normal 0.70-1.[address] [facility] Comment on above: Result Comment: The validity of the calculated GFR GFRAA in patients over 70 years has not been determined. Clinical correlation is essential. Performed By: #### L 501.9910, L500.4100, L501.9985, L501.9520, L3100.7750, L500.4050 ####[facility] [address] [place], [address] EST GFR - AA 74 mL/min Normal >60 [facility] Comment on above: Result Comment: Afri can [facility] GFR Calc Performed By: #### L 501.9910, L500.4100, L501.9985, L501.9520, L3100.7750, L500.4050 ####[facility] [address] [place], [address] GAP 6 Normal 5-15 [facility] Comment on above: Performed By: #### L 501.9910, L500.4100, L501.9985, L501.9520, L3100.7750, L500.4050 ####[facility] [address] [place], [address] GFR/1.73 sq M.predicted among non-blacks MDRD (S/P/Bld) [Vol rate/Area] 61 mL/min/{1.73_m2} Normal >60 [facility] Comment on above: Result Comment: Non- GFR Calc Performed By: #### L 501.9910, L500.4100, L501.9985, L501.9520, L3100.7750, L500.4050 ####[facility] [address] [place], [address] Globulin (S) [Mass/Vol] 3.1 g/dL Normal 2.2-4.2 [facility] Comment on above: Performed By: #### L 501.9910, L500.4100, L501.9985, L501.9520, L3100.7750, L500.4050 ####[facility] [address] [place], [address] Glucose [Mass/Vol] 476 mg/dL Invalid Interpretation Code 74-106 [facility] Comment on above: Result Comment: Crit ical Result(s) Called at: 16:38:20 03/04/2023 by: [facility]n [facility] Results read back by same. Glucose result greater than or equal to 200 mg/dL suggests DIABETES MELLITUS per A.D.A. criteria. Performed By: #### L 501.9910, L500.4100, L501.9985, L501.9520, L3100.7750, L500.4050 ####[facility] [address] [place], [address] Potassium [Moles/Vol] 4.1 mmol/L Normal 3.5-5.[address] [facility] Comment on above: Performed By: #### L 501.9910, L500.4100, L501.9985, L501.9520, L3100.7750, L500.4050 ####[facility] [address] [place], [address] Sodium [Moles/Vol] 132 mmol/L Low 136-145 [facility] Comment on above: Performed By: #### L 501.9910, L500.4100, L501.9985, L501.9520, L3100.7750, L500.4050 ####[facility] [address] [place], [address] T PROT 6.8 g/dL Normal 6.4-8.2 [facility] Comment on above: Performed By: #### L 501.9910, L500.4100, L501.9985, L501.9520, L3100.7750, L500.4050 ####[facility] [address] [place], [address] Urea nitrogen [Mass/Vol] 16 mg/dL Normal 7-18 [facility] Comment on above: Performed By: #### L 501.9910, L500.4100, L501.9985, L501.9520, L3100.7750, L500.4050 ####[facility] [address] [place], [address] Laboratory - Chemistry and C hemistry - challengeOrdered By: Chino Child on 03-04-2023 ALP [Catalytic activity/Vol] 80 U/L 45-117 [facility] ALT [Catalytic activity/Vol] 26 U/L 16-61 [facility] CO2 [Moles/Vol] 25.0 mmol/L 21.0-32.0 [facility] Globulin (S) [Mass/Vol] 3.1 g/dL 2.2-4.2 [facility] Urea nitrogen/Creatinine [Mass ratio] 12.8 mg/mg 10-20 [facility] Lipid Profileon 03-04-2023 Cholesterol [Mass/Vol] 251 mg/dL High 200 [facility] Comment on above: Result Comment: <200 mg/dL Desirable 200-240 mg/dL Borderline >240 mg/dL High Risk Performed By: #### L 501.9910, L500.4100, L501.9985, L501.9520, L3100.7750, L500.4050 ####[facility] [address] [place], [address] Cholesterol in HDL [Mass/Vol] 45 mg/dL Normal [facility] Comment on above: Result Comment: The drugs N-Acetylcysteine and Metamizole may falsely depress this assay. Reference Range HDL <40 mg/dL Low HDL Cholesterol HDL >or= 60 mg/dL High HDL Cholesterol Performed By: #### L 501.9910, L500.4100, L501.9985, L501.9520, L3100.7750, L500.4050 ####[facility] [address] [place], [address] Cholesterol in LDL [Mass/Vol] 177 mg/dL High 0-130 [facility] Comment on above: Performed By: #### L 501.9910, L500.4100, L501.9985, L501.9520, L3100.7750, L500.4050 ####[facility] [address] [place], [address] Cholesterol in VLDL [Mass/Vol] 29 mg/dL Normal 5-40 [facility] Comment on above: Performed By: #### L 501.9910, L500.4100, L501.9985, L501.9520, L3100.7750, L500.4050 ####[facility] [address] [place], [address] Triglyceride [Mass/Vol] 146 mg/dL Normal [facility] Comment on above: Result Comment: The drugs N-Acetylcysteine and Metamizole may falsely depress this assay. Serum Triglycerides Reference Interval Normal <150 mg/dL Borderline high 150 - 199 mg/dL High 200 - 499 mg/dL Very High > or = 500 mg/dL Performed By: #### L 501.9910, L500.4100, L501.9985, L501.9520, L3100.7750, L500.4050 ####[facility] [address] [place], [address] No Panel InformationOrdered By: Chino Child on 03-04-2023 C-Peptide 2.7 ng/mL 1.1-4.4 [facility] Comment on above: C-Peptide reference interval is for fasting patients.Performed at: [facility] [id number] Director: Sergey Batista PhD, Phone: [phone] Estimated GFR (MDRD) Amer 74 mL/min >60 [facility] Comment on above: GFR Calc Estimated GFR (MDRD) Non-Af Amer 61 mL/min >60 [facility] Comment on above: Non- GFR Calc Prostate Specific Antigen Screen 1.24 ng/mL 0.00-4.00 [facility] Comment on above: This test was perfor med using the TPSA assay method for [employer] chemistry system. Values obtained with differentassay methods cannot be used interchangably.When changing PSA assays in the course of monitoring apatient, additional sequential testing should be carriedout to confirm baseline values. Thyroid Stimulating Hormone (TSH) 2.28 uIU/mL 0.358-3.74 [facility] PSA,Total - Annual Screenon 03-04-2023 PSA,TOT SCREEN 1.24 ng/mL Normal 0.00-4.00 [facility] Comment on above: Result Comment: This test was performed using the TPSA assay method for the [employer] chemistry system. Values obtained with different assay methods cannot be used interchangably. When changing PSA assays in the course of monitoring a patient, additional sequential testing should be carried out to confirm baseline values. Performed By: #### L 501.9910, L500.4100, L501.9985, L501.9520, L3100.7750, L500.4050 ####[facility] [address] [place], [address] Serum or plasma albumin darline urement (mass/volume)Ordered By: Chino Child on 03-04-2023 Albumin [Mass/Vol] 3.7 g/dL 3.2-5.0 [facility] Serum or plasma albumin/glob ulin mass ratioOrdered By: Chino Child on 03-04-2023 Albumin/Globulin [Mass ratio] 1.2 {ratio} 0.9-2.4 [facility] Serum or plasma calcium darline urement (mass/volume)Ordered By: Chino Child on 03-04-2023 Calcium [Mass/Vol] 8.9 mg/dL 8.5-10.1 [facility] Serum or plasma cholesterol in HDL measurement (mass/volume)Ordered By: Chino Child on 03-04-2023 Cholesterol in HDL [Mass/Vol] 45 mg/dL >40 [facility] Comment on above: The drugs N-Acetylcy steine and Metamizole may falsely depress this assay. Reference Range HDL <40 mg/dL Low HDL Cholesterol HDL >or= 60 mg/dL High HDL Cholesterol Serum or plasma cholesterol in VLDL measurement (mass/volume)Ordered By: Chino Child on 03-04-2023 Cholesterol in VLDL [Mass/Vol] 29 mg/dL 5-40 [facility] Serum or plasma creatinine m easurement (mass/volume)Ordered By: Chino Child on 03-04-2023 Creatinine [Mass/Vol] 1.25 mg/dL 0.70-1.[address] [facility] Comment on above: The validity of the calculated GFR & GFRAA in patients over 70 years has not been determined. Clinical correlation is essential. Serum or plasma low density lipoprotein (LDL) cholesterol measurement (mass/volume)Ordered By: Chino Child on 03-04-2023 Cholesterol in LDL [Mass/Vol] 177 mg/dL 0-130 [facility] Serum or plasma urea nitroge n measurement (mass/volume)Ordered By: Chino Child on 03-04-2023 Urea nitrogen [Mass/Vol] 16 mg/dL 7-18 [facility] Thin prep Papanicolaou smear with manual screeningOrdered By: Chino Child on 03-04-2023 Thin prep Papanicolaou smear with manual screening 15 U/L 15-37 [facility] Thin prep Papanicolaou smear with manual screening 6 5-15 [facility] Whole blood hemoglobin A1c/t otal hemoglobin ratio (mass fraction)Ordered By: Chino Child on 03-04-2023 HbA1c (Bld) [Mass fraction] 13.5 % 3.8-5.6 [facility] Comment on above: Normal < 5.7 % Predi abetic 5.7 - 6.4 % Diabetic >or= 6.5 % Please note range changes. Pattie 08-20-2022 CNPN Telephone (OPHWOO) TANGELA STORM ([id number]) 1955 Date Time Provider Department 08/20/22 MARTÍNEZ RIVERA OPHWOO During your visit today, we recorded the following information about you: Jeniffer Bernie 08/20/2022 10:44 AM Signed [facility] pharmacy wanted to know if they could give the 10 ml of prednisolone because the 5 ml is on backorder. Please call pharmacy to update and/or fax new order if necessary. ph. [phone], fax [phone] Carla Durant 08/20/2022 10:[address] Scott, is the 10mL okay to put through instead of the 5mL for Prednisolone? Please advise thank you Carla Durant August 20, 2022 10:53 AM Brigitte Lang RN 08/20/2022 12:34 PM Signed Yes, it is per verbal order from Dr. Rivera. Brigitte Lang RN August 20, 2022 12:33 PM Brigitte Lang RN 08/21/2022 4:39 PM Signed Called Pharmacy to give dispense amount of 10 ml for the Prednisolone. Brigitte Lang RN August 21, 2022 4:39 PM Allergies As of Date: 08/20/2022 (No Known Allergies) Date Reviewed: 08/20/2022 Reviewed by: Martínez Rivera MD - Fully Assessed Reason for Visit: Orders [681] Refill Request [94] Prescriptions as of 08/21/2022 - prednisoLONE acetate (PRED FORTE, ECONOPRED PLUS) 1 % ophthalmic suspension Use 1 Drop in the right eye twice daily. Problem List As Of Date: 08/20/2022 (None) Encounter Status:Closed by BRIGITTE LANG on 08/21/22 Normal [facility] Gram stain for investigation of transfusion reaction Microscopic observation Gram stain Nom (Unsp spec) [facility] Work Phone: Vital Signs Date Time Vital Sign Value Performing Clinician Faci lity 02-11-2024 11:08-0400 Body temperature 98.8 [degF] Dr. Chino Child Work Phone: [facility] 02-11-2024 11:08-0400 Diastolic blood pressure 77 mm[Hg] Dr. Chino Child Work Phone: [facility] 02-11-2024 11:08-0400 Heart rate 81 /min Dr. Chino Child Work Phone: [facility] 02-11-2024 11:08-0400 Respiratory rate 16 /min Dr. Chino Child Work Phone: [facility] 02-11-2024 11:08-0400 SaO2% (BldA) [Mass fraction] 100 % Dr. Chino Child Work Phone: [facility] 02-11-2024 11:08-0400 Systolic blood pressure 130 mm[Hg] Dr. Chino Child Work Phone: [facility] 02-11-2024 06:43-0400 Body height 177.[address] Chino Child Work Phone: [facility] 02-11-2024 06:43-0400 Body mass index (BMI) [Ratio] 26.9 kg/m2 Dr. Chino Child Work Phone: [facility] 02-11-2024 06:43-0400 Body weight [address] Chino hCild Work Phone: [facility] 01-13-2024 08:20-0500 Body mass index (BMI) [Ratio] 26.9 kg/m2 Dr. Chino Child Work Phone: [facility] 01-13-2024 08:20-0500 Body weight 85.[address] Chino Child Work Phone: [facility] 01-13-2024 08:20-0500 Diastolic blood pressure 90 mm[Hg] Dr. Chino Child Work Phone: [facility] 01-13-2024 08:20-0500 Respiratory rate 18 /min Dr. Chino Child Work Phone: [facility] 01-13-2024 08:20-0500 Systolic blood pressure 160 mm[Hg] Dr. Chino Child Work Phone: [facility] 07-06-2022 04:19-0400 Body height 177.8 cm [facility] Work Phone: 07-06-2022 04:19-0400 Body mass index (BMI) [Ratio] 27.7 kg/m2 [facility] Work Phone: 07-06-2022 04:19-0400 Body temperature 97.9 [degF] [facility] Work Phone: 07-06-2022 04:19-0400 Body weight 87.7 kg [facility] Work Phone: 07-06-2022 04:19-0400 Diastolic blood pressure 115 mm[Hg] [facility] Work Phone: 07-06-2022 04:19-0400 Heart rate 95 /min [facility] Work Phone: 07-06-2022 04:19-0400 Respiratory rate 16 /min [facility] Work Phone: 07-06-2022 04:19-0400 SaO2% (BldA) [Mass fraction] 97 % [facility] Work Phone: 07-06-2022 04:19-0400 Systolic blood pressure 119 mm[Hg] [facility] Work Phone: Encounters Encounter Date Encounter Type Care Provider Facility Start: 02-24-2024 End: 02-24-2024 ambulatory Chino Child Facility:[facility] Start: 02-11-2024 End: 02-11-2024 ambulatory Asim Pillai Facility:[facility] Start: 02-11-2024 Non-patient / Non-visit Dr. Chino Child Work Phone: [facility] Start: 02-11-2024 End: 02-11-2024 Admission to same day surgery center Dr. Chino Child Work Phone: [facility] Start: 02-11-2024 End: 02-11-[address] Chino Child Work Phone: [facility] Work Phone: Start: 02-04-2024 End: 02-04-2024 ambulatory Rg Cuello Facility:[facility] Start: 01-13-2024 End: 01-13-2024 ambulatory Chino Child Facility:[facility] Start: 01-13-2024 End: 01-13-[address] Chino Child Work Phone: [facility] Work Phone: Start: 12-08-2023 End: 12-08-2023 ambulatory Chino Child [facility] Work Phone: Start: 12-08-2023 End: 12-08-2023 Patient encounter procedure [facility] Work Phone: Start: 06-03-2023 End: 06-03-2023 ambulatory Chino Child [facility] Work Phone: Start: 06-03-2023 End: 06-03-2023 Patient encounter procedure [facility] [place] Work Phone: Start: 03-04-2023 End: 03-04-2023 ambulatory Chino Child Facility:[facility] Start: 03-04-2023 End: 03-04-2023 Patient encounter procedure [facility] [place] Work Phone: Start: 09-03-2022 End: 09-03-2022 Patient encounter procedure Martínez Rivera MD Work Phone: Ophthalmology Comment on above: Corneal scar, right eye (Primary Dx) Start: 08-20-2022 Telephone encounter Martníez vieira MD Work Phone: Ophthalmology Comment on above: Orders; Refill Reque st Start: 08-20-2022 End: 08-20-2022 ambulatory PHILIP VALDES Facility:[facility] Start: 07-07-2022 End: 07-07-2022 Patient encounter procedure [facility] Start: 07-06-2022 End: 07-06-2022 Emergency department patient visit [facility] Procedures Date Procedure Procedure Detail Performing Clinician Start: 02-11-2024 Lap Robotic Inguinal Hernia (Left) Dr. Chino Child Work Phone: Investigation of transfusion reaction Microbial culture, routine Plan of Treatment Date Care Activity Detail Author Start: 02-11-2024 Patient discharge [facility] Start: 07-24-2022 Influenza vaccination INFLUENZA (#1) [facility] Start: 11-23-2021 ADVANCE DIRECTIVE DISCUSSION ADVANCE DIRECTIVE DISCUSSION [facility] Start: 11-23-2021 DEPRESSION ASSESSMENT DEPRESSION ASSESSMENT [facility] Start: 2021 PNEUMOCOCCAL: 65+ (1 - PCV) PNEUMOCOCCAL: 65+ (1 - PCV) [facility] Start: 2011 PROSTATE CANCER SCREENING DISCUSSION PROSTATE CANCER SCREENING DISCUSSION [facility] Start: 2006 SHINGRIX VACCINE (1 of 2) SHINGRIX VACCINE (1 of 2) [facility] Start: 2001 COLOGUARD (FIT-DNA) COLOGUARD (FIT-DNA) [facility] Start: 2001 Colonoscopy COLONOSCOPY [facility] Start: 2001 COLORECTAL CANCER SCREENING COLORECTAL CANCER SCREENING [facility] Start: [address] COLONOGRAPHY [facility] Start: 2001 DIABETES SCREEN DIABETES SCREEN [facility] Start: 2001 FECAL OCCULT BLOOD FECAL OCCULT BLOOD [facility] Start: 2001 SIGMOIDOSCOPY SIGMOIDOSCOPY [facility] Start: 1991 LIPID SCREEN LIPID SCREEN [facility] Start: 1975 Urine microalbumin profile DTAP,TDAP,TD (1 - Tdap) [facility] Start: 1974 HEPATITIS C SCREENING HEPATITIS C SCREENING [facility] Start: 1974 HIV SCREENING HIV SCREENING [facility] Start: 04-28-1956 COVID-19 VACCINE (#1) COVID-19 VACCINE (#1) [facility] Patient Education ED Conjunctivi tis, Bacterial [facility] Work Phone: Patient referral [facility] Work Phone: [facility] Immunizations Immunization Date Immunization Notes Care Provider Fa oniel 08-20-2019 tetanus toxoid, redu josie diphtheria toxoid, and acellular pertussis vaccine, adsorbed [facility] Payers Date Payer Category Payer Private Health Insurance [id number] 2023 Self-pay [id number] 2019 Unknown YECENIA LUCIO PPO [id number] 2019-Present [phone] [facility] [place] [address] PPO [id number] 2016 Unknown [id number] Unknown [id number] Unknown [id number] 462 Unknown [id number] 462 Unknown [id number] 462 Unknown [id number] 462 Unknown [id number] 462 Unknown [id number] 462 Social History Date Type Detail Facility Start: 07-06-2022 End: 02-01-2024 Tobacco smoking status PAIS Unknown if ever smoked [facility] Start: 1955 Sex Assigned At Male [facility] Start: 08-20-2022 [facility] Start: 08-20-2022 Tobacco use and exposure Smokeless tobacco non-user [facility] Start: 1955 Sex Assigned At Not on file [facility] Start: 08-10-2022 End: 08-20-2022 Exposure to SARS-CoV-2 (event) Not sure [facility] Goals Date Patient Goal Desired Activity /State Functional Status Date Assessment Result Facility 02-11-2024 Functional status Ambulates [facility] Work Phone: Mental Status Date Assessment Result Facility 02-11-2024 Cognitive function Level Of Consciousness Sedated [facility] Work Phone: 02-11-2024 Cognitive function Voice/Name [facility] Work Phone: Discharge summary 02-11-2024 Note Date & Type Note Facility 02-11-2024 Discharge summary Note Date/Time February 11, 2024 8:59am [facility] Medical Records Department [address] [place] [address] Instructions for Home/Discharge Instructions 02/11/24 0857 MR#: [id number] Acct: [id number] Name: TANGELA STORM Rep #:[id number] : 1955 68 From: Asim rajan MD PCP: Dr. Chino Child MD Status:REG [facility] Discharge Instructions Procedure Hernia Diet Discharge Diet: Light diet - advance as tolerated Activity Discharge Activity: May Not Drive (for 2-3 days or while taking narcotic pain meds.) and May Shower (with the bandage in place 1-2 days after surgery.) Lifting Restrictions: 20 pounds for 4 weeks. Additional Activity Instructions:: Climbing stairs is fine, walking is encouraged. Sitting in bed may be uncomfortable. Sitting up using your lateral muscles (sitting up sideways) is usually more comfortable. Do not drive, work heavy equipment of sign legal documents for 24 hours. If your hernia repair was an inguinal repair, you may have scrotal swelling, an ice pack and/or athletic support can provide more comfort. Pain medications may cause nausea, you should typically eat light foods as you take your pain medications. Pain medications may also cause constipation. If you have difficulty with this, discuss with your doctor. Resume aspirin tomorrow Alternate ibuprofen and Tylenol for pain, oxycodone for breakthrough pain. Dressing / Incision Call your doctor if your incision/area has: Continuous Slow Oozing, Sudden Increased Bleeding, Increased Pain/ Swelling, Increased Redness and Foul Smelling Discharge Call your doctor if you observe: Fever of 101 or Higher Suture Line Care: Avoid Pulling/Pushing and Avoid Pinching/Bending Remove Dressing in: 2 days (Remove clear bandages in 2 days, remove Steri-Stripsin 7 to 10 days.) Follow Up Care Please Follow Up With: Asim Pillai MD When: Please call to schedule 2 week follow up appointment. [phone] Test Results: Test results from this visit will be discussed in further detail at your follow-up appointment, if applicable. Discharge Plan Admission Attending Provider: Asim Pillai Primary Care Provider: Chino Child Discharge Orders/Prescriptions Prescriptions: New oxycodone 5 mg Tablet 5 - 10 mg PO Q4H PRN PRN (Reason: Pain Score 4-10/10) 5 Days Qty: 10 0RF No Action metformin 500 mg tablet 500 mg PO DAILY ramipril 2.5 mg capsule 2.5 mg PO DAILY multivitamin [Daily Multi-Vitamin] Tablet 1 tab PO DAILY aspirin 81 mg tablet,delayed release (DR/EC) 81 mg PO DAILY pitavastatin calcium 2 mg tablet 2 mg PO QPM Referrals / Follow Up: Chino Child MD [Primary Care Provider] - Disposition Disposition (needs filled in before D/C Order can be placed): Home, Self Care 02/11/24 0900<Electronically signed by Asim Pillai MD>Asim Pillai MD CC: Dr. Chino Child MD ~ Signed [facility] Work Phone: Procedure note 02-11-2024 Note Date & Type Note Facility 02-11-2024 Procedure note [facility] History and physical note 02-11-2024 Note Date & Type Note Facility 02-11-2024 History and physi cole note Note Date/Time February 11, 2024 6:40am [facility] Medical Records Department [address] [place] [address] History & Physical Exam 02/11/24 0640 MR#: [id number] Acct: [id number] Name: TANGELA STORM HERMAN Rep #:[id number] : 1955 68 From: Asim rajan MD PCP: Dr. Chino Child MD Status:[facility] Location: [place] [address] History and Physical Date of Admission: 02/11/24 Intake Vital Signs 07/06/2204:19 01/13/2408:20 Height 5 ft 10 in 5 ft 10 in Weight: 188 lb BMI 26.9 BP 160/90 H Blood Pressure Location Rt brachial Position Sitting Respiration 18 Intake Visit Reasons: Inguinal Swelling Chief Complaint: [facility] Silver Service Waiter Required: No Is patient in pain?: Yes (left groin) Allergies No Known Allergies Allergy (Verified 01/13/24 08:22) Medications aspirin 81 mg tablet,delayed release 81 mg PO DAILY 01/13/24 [History Confirmed 01/13/24] metformin 500 mg tablet 500 mg PO DAILY 01/13/24 [History Confirmed 01/13/24] multivitamin (Daily Multi-Vitamin tablet) 1 tab PO DAILY 01/13/24 [History Confirmed 01/13/24] pitavastatin calcium 2 mg tablet 2 mg PO QPM 01/13/24 [History Confirmed 01/13/24] ramipril 2.5 mg capsule 2.5 mg PO DAILY 01/13/24 [History Confirmed 01/13/24] [facility] Medical History (Updated 01/13/24 @ 11:[address] Asim Pillai MD) Constipation Diabetes High cholesterol HTN (hypertension) Left groin pain Surgical History (Updated 01/13/24 @ 08:18 by Shea El) S/P vasectomy Family History (Updated 01/13/24 @ 08:19 by Shea El) Mother Diabetes Heart diseaseSister Diabetes Heart diseaseBrother Diabetes Heart disease CAD (coronary artery disease) Social History (Updated 01/13/24 @ 08:20 by Shea El) Smoking Status: Never smoker alcohol intake: current details: social HPI HPI HPI: Patient is here complaining of left groin bulging. He says it is worse when he has to go to the bathroom or having a lot of gas. He says has been going on forabout a year. He denies nausea or vomiting. He denies any pain on the oppositeside. ROS General General: No weight change, appetite, fatigue, colon cancer, breast cancer or weakness HEENT HEENT: No difficulty swallowing, eye injury, eye surgery, swollen glands or hoarseness Endo Endocrine: Yes diabetes mellitus; No thyroid disease, thyroid cancer, Hair loss, heat intolerance or cold intolerance Skin Skin: No rash or changing moles Breast Breast: No left breast lump, right breast lump, nipple discharge, breast pain, abnormal mammogram, abnormal US or breast enlargement Musc Musculoskeletal: No back problems, arthritis, rheumatoid arthritis, gout or joint pain Cardio Cardiovascular: Yes high blood pressure; No murmur, pacemaker, heart disease, atrial fibrillation, heart attack, heart stent, palpitations, shortness of breat with exertion or chest pain Psych Psychiatric: No depression, anxiety or hearing voices Resp Respiratory: No shortness of breath, No sleep apnea, No cough, No COPD, No asthma, No emphysema and No wheezing Gastro Gastrointestinal: No abdominal pain, No nausea or vomiting, No diarrhea, Yes constipation, No blood in stool, No acid reflux, No hemorrhoids, No ulcers, No gallbladder problem and No black,tarry stools Clifford Hematologic: Yes blood thinners, No blood disorders, No bleeding, No anemia and No blood clots Neuro Neurologic: No system reviewed and no additional complaints, except as documented, No as per HPI, No abnormal gait, No abnormal hearing, No abnormal movements, No abnormal speech, No behavioral changes, No burning sensations, No confusion, No convulsions, No disequilibrium, No dizziness, No localized weakness, No frequent falls, No headache(s), No lack of coordination, No loss ofvision, No memory loss, No numbness, No other visual disturbances, No radicular pain, No restless legs, No sensory deficit, No syncope, No tingling, No tremor(s), No weakness and No other Exam Const General: cooperative Orientation: alert and oriented x3 HENMT Head: normal to inspection Neck Neck: normal visual inspection and full ROM Chest Chest palpation & inspection: normal inspection of the chest Resp Effort & Inspection: normal respiratory effort Auscultation: clear to auscultation bilaterally Cardio Rate: regular rate Rhythm: regular rhythm GI Inspection: non-distended Palpation: soft, hernia indirect inguinal on the left and nontender Skin General: no rashes or lesions noted Neuro General: patient alert and patient oriented x3 Extrem General: full ROM Psych Appearance: grossly normal Mental Status: mental status grossly normal Assessment and Plan Assessment and Plan (1) Left inguinal hernia: Status: Acute Plan: The patient has a large but reducible left inguinal hernia that seems to containcolon. I discussed robotic assisted laparoscopic left inguinal hernia repair with mesh with him in great detail. I discussed the risks including but not limited to bleeding, infection, injury to other organs such as the bowel or bladder or blood supply the testicle. Patient understands the risks and is willing to proceed. I discussed repairing the opposite side if he has any herniation on that side and he would like to proceed if there is a hernia on theopposite side. Asim Pillai MD Pager: [facility] [address] [place] [address], [address] [place] [address] Office: I have examined the patient and the H&P has been reviewed. There are no clinicalchanges since date of exam. 02/11/24 0640 <Electronically signed by Asim Pillai MD> Cosigner Signature (if applicable): CC: Dr. Asim Pillai MD; Dr. Chino Child MD~ Signed [facility] Work Phone: Clinical Note 02-11-2024 Note Date & Type Note Facility 02-11-2024 Note [facility] Medical Records Department [address] [place] [address] History Physical Exam 02/11/24 0640 MR#: [id number] Acct: [id number] Name: TANGELA STORM HERMAN Rep #: [id number] : 1955 68 From: Asim Pillai MD PCP: Dr. Chino Child MD Status:[facility] Location: [place] [address] History and Physical Date of Admission: 02/11/24 Intake Vital Signs 07/06/2204:19 01/13/2408:20 Height 5 ft 10 in 5 ft 10 in Weight: 188 lb BMI 26.9 BP 160/90 H Blood Pressure Location Rt brachial Position Sitting Respiration 18 Intake Visit Reasons: Inguinal Swelling Chief Complaint: [facility] Silver Service Waiter Required: No Is patient in pain?: Yes (left groin) Allergies No Known Allergies Allergy (Verified 01/13/24 08:22) Medications aspirin 81 mg tablet,delayed release 81 mg PO DAILY 01/13/24 [History Confirmed 01/13/24] metformin 500 mg tablet 500 mg PO DAILY 01/13/24 [History Confirmed 01/13/24] multivitamin (Daily Multi-Vitamin tablet) 1 tab PO DAILY 01/13/24 [History Confirmed 01/13/24] pitavastatin calcium 2 mg tablet 2 mg PO QPM 01/13/24 [History Confirmed 01/13/24] ramipril 2.5 mg capsule 2.5 mg PO DAILY 01/13/24 [History Confirmed 01/13/24] [facility] Medical History (Updated 01/13/24 @ 11:[address] Asim Pillai MD) Constipation Diabetes High cholesterol HTN (hypertension) Left groin pain Surgical History (Updated 01/13/24 @ 08:18 by Shea El) S/P vasectomy Family History (Updated 01/13/24 @ 08:19 by Shea El) Mother Diabetes Heart diseaseSister Diabetes Heart diseaseBrother Diabetes Heart disease CAD (coronary artery disease) Social History (Updated 01/13/24 @ 08:20 by Shea El) Smoking Status: Never smoker alcohol intake: current details: social HPI HPI HPI: Patient is here complaining of left groin bulging. He says it is worse when he has to go to the bathroom or having a lot of gas. He says has been going on for about a year. He denies nausea or vomiting. He denies any pain on the opposite side. ROS General General: No weight change, appetite, fatigue, colon cancer, breast cancer or weakness HEENT HEENT: No difficulty swallowing, eye injury, eye surgery, swollen glands or hoarseness Endo Endocrine: Yes diabetes mellitus; No thyroid disease, thyroid cancer, Hair loss, heat intolerance or cold intolerance Skin Skin: No rash or changing moles Breast Breast: No left breast lump, right breast lump, nipple discharge, breast pain, abnormal mammogram, abnormal US or breast enlargement Musc Musculoskeletal: No back problems, arthritis, rheumatoid arthritis, gout or joint pain Cardio Cardiovascular: Yes high blood pressure; No murmur, pacemaker, heart disease, atrial fibrillation, heart attack, heart stent, palpitations, shortness of breat with exertion or chest pain Psych Psychiatric: No depression, anxiety or hearing voices Resp Respiratory: No shortness of breath, No sleep apnea, No cough, No COPD, No asthma, No emphysema and No wheezing Gastro Gastrointestinal: No abdominal pain, No nausea or vomiting, No diarrhea, Yes constipation, No blood in stool, No acid reflux, No hemorrhoids, No ulcers, No gallbladder problem and No black,tarry stools Clifford Hematologic: Yes blood thinners, No blood disorders, No bleeding, No anemia and No blood clots Neuro Neurologic: No system reviewed and no additional complaints, except as documented, No as per HPI, No abnormal gait, No abnormal hearing, No abnormal movements, No abnormal speech, No behavioral changes, No burning sensations, No confusion, No convulsions, No disequilibrium, No dizziness, No localized weakness, No frequent falls, No headache(s), No lack of coordination, No loss of vision, No memory loss, No numbness, No other visual disturbances, No radicular pain, No restless legs, No sensory deficit, No syncope, No tingling, No tremor(s), No weakness and No other Exam Const General: cooperative Orientation: alert and oriented x3 HENMT Head: normal to inspection Neck Neck: normal visual inspection and full ROM Chest Chest palpation inspection: normal inspection of the chest Resp Effort Inspection: normal respiratory effort Auscultation: clear to auscultation bilaterally Cardio Rate: regular rate Rhythm: regular rhythm GI Inspection: non-distended Palpation: soft, hernia indirect inguinal on the left and nontender Skin General: no rashes or lesions noted Neuro General: patient alert and patient oriented x3 Extrem General: full ROM Psych Appearance: grossly normal Mental Status: mental status grossly normal Assessment and Plan Assessment and Plan (1) Left inguinal hernia: Status: Acute Plan: The patient has a large but reducible left inguinal hernia that seems to contain colon. I discussed robotic assist (more content not included)... [facility] History of Present illness Narrative 09-03-2022 [...] by others. I have seen and examined Tangela Storm. I have discussed the case and the management of this patient's care with the Resident/Fellow, if applicable. I also have reviewed and agree with the assessment and plan as stated above and agree with all of its relevant components. Martínez Rivera MD documented in this encounter [facility] Note 08-21-2022 Telephone Encounter - Brigitte Lang RN - 08/21/2022 4:38 PM EDTTelephone Encounter - Brigitte Lang RN - 08/20/2022 12:32 PM EDT Note Date & Type Note Facility 08-21-2022 Miscellaneous Notes Formattin g of this note might be different from the original. Called Pharmacy to give dispense amount of 10 ml for the Prednisolone. Brigitte Lang RN August 21, 2022 4:39 PM Yes, it is per verbal order from Dr. Rivera. Brigitte Lang RN August 20, 2022 12:[address] Rivera and Ishan, is the 10mL okay to put through instead of the 5mL for Prednisolone? Please advise thank you Carla Durant August 20, 2022 10:53 AM [facility] pharmacy wanted to know if they could give the 10 ml of prednisolone because the 5 ml is on backorder. Please call pharmacy to update and/or fax new order if necessary. ph. [phone], fax [phone] documented in this encounter [facility] Progress note 08-20-2022 Note Date & Type Note Facility 08-20-2022 Note HNO ID: [id number] Author: Martínez Rivera MD Service: ? Author [...] by others. I have seen and examined Tangela Storm. I have discussed the case and the management of this patient's care with the Resident/Fellow, if applicable. I also have reviewed and agree with the assessment and plan as stated above and agree with all of its relevant components. Martínez Rivera MD August 20, 2022 9:52 AM [facility] Evaluation note Note Date & Type Note Facility Evaluation note No assessment information availa ble [facility] Work Phone: Evaluation note Note Date & Type Note Facility Evaluation note Diagnosis Corneal scar, right eye- Primary Corneal opacity, unspecified documented in this encounter [facility] Evaluation note Note Date & Type Note Facility Evaluation note Diagnosis Onset Date Left inguinal hernia acute [facility] Work Phone: Chief Complaint and Reason for Visit Chief Complaint right eye pain Chief Complaint right eye pain CORUEDULCER/CLINICALLY CONSISTENT WITH PSEUDOMOUAS Chief Complaint EORDER Chief Complaint EORDER Inguinal Swelling Lap Robotic Left poss bilateral Ing Lap Robotic Left poss bilateral Ing Reason for Visit Left inguinal hernia Advance Directives No Advanced Directives Records Found Advance Directive Response Recorded Date/ Time Living Will No July 06 2 5:07am Power of Donor Services Coordinator No July 06 5:07am Advance Directive Response Recorded Date/ Time Living Will No July 06 2 4:07am Power of Donor Services Coordinator No July 06 022 4:07am Advance Directive Response Recorded Date/ Time Name of Medical Power of Donor Services Coordinator February 01, 2024 3:31pm Living Will Yes February 01, 2024 3:31pm Power of Donor Services Coordinator Yes January 31 3:31pm Summary Purpose Family History No Family History Records Found Relationship Condition Age at Onset Recorded Date/T estrella mother Diabetes mellitus Unknown Cardiac disease Unknown sister Diabetes mellitus Unknown brother Diabetes mellitus Unknown Coronary artery disease Unknown Additional Source Comments Goals (unrecognized section and content) Goals may be documented in a n alternate sectionGoals may be documented in an alternate sectionGoals may be documented in an alternate sectionGoals may be documented in an alternate section Source Comments (unrecognize d section and content) In the event this informatio n is protected by the Federal Confidentiality of Alcohol and Drug Abuse Patient Records regulations: The Federal rules restrict any use of the information to criminally investigate or prosecute any alcohol or drug abuse patient.[facility] the event this information is protected by the Federal Confidentiality of Alcohol and Drug Abuse Patient Records regulations: The Federal rules restrict any use of the information to criminally investigate or prosecute any alcohol or drug abuse patient.[facility] Reason for Visit (unrecogniz ed section and content) Reason Comments Orders Refill Request Reason Comments Corneal Scar Right eye Care Teams (unrecognized sec tion and content) Geology Technician Relationship Specialty Start Date End Date Philip Valdes [address] [place] [address] Referring Ophthalmology 08/14/22 Geology Technician Relationship Specialty Start Date End Date Philip Valdes [address] [place] [address] Referring Ophthalmology 08/14/22 Team Status: Active Member Role Status Dates Dr. Chino Child MD Family Provider Active Dr. Chino Child MD Primary Care Provider Active Team Status: Inactive Member Role Status Dates Dr. Chino Child MD Primary Care Provide r, Attending Provider, Referring Provider Active Team Status: Inactive Member Role Status Dates Dr. Chino Child MD Primary Care Provider, Referring P radha Active Dr. Asim Pillai MD Attending Provider Active Team Status: Active Member Role Status Dates Dr. Chino Child MD Primary Care Provider Active Dr. Asim Pillai MD Attending Pr delroy, Referring Provider, Other Provider Active Team Status: Inactive Member Role Status Dates Dr. Chino Child MD Primary Care Provider Active Dr. Asim Pillai MD Attending Provider, Referr ing Provider Active (unrecognized sect ion and content) No Status Records FoundNo Status Records Found INFORMATION SOURCE (unrecogn ized section and content) DATE CREATED AUTHOR 08/25/2022 [facility] DATE CREATED AUTHOR AUTHOR'S ORGANIZ ATION 02/25/2024 [facility] FOR RECORDS PERTAINING TO PATIENTS WHO ARE [...] BE BASED ON THE PRIMARY CLINICAL RECORDS. [employer] provides no warranty or guarantee of the accuracy or completeness of information in this document.
== END | disposition home or self-care (01) ==
LOC: MFPLAB 09:44
PROVIDERS: PCP Family Medicine; Referring Provider Family Medicine; Visit Provider Family Medicine
DX: E11.9 Type 2 diabetes mellitus without complications (principal); E78.00 Pure hypercholesterolemia, unspecified
CPT/HCPCS: 36415; 80053; 80061; 82043; 82570; 83036